=== PATIENT | male | born 1945 | race Caucasian/White ===

== ENCOUNTER 2023-10-24 22:08 | Emergency (ER) | payer MEDICARE, SELFPAY ==
[2023-10-24] VITALS (11 sets, daily range): BP systolic 135–218; BP diastolic 80–107; PULSE 50–86; RESP 6–20; TEMP 35.9–36.8; O2SAT 95–100; BMI 29.2
--- NOTE | ~2023-10-24 | XR_ITS ---
EXAMINATION: XR HAND/WRIST, LEFT CLINICAL INFORMATION: Fall COMPARISON: None TECHNIQUE: PA, lateral, and oblique views of the left hand and wrist. FINDINGS: The bones and soft tissues are normal. No fracture. Alignment is anatomic. Joint spaces are maintained. No erosions or soft tissue calcifications. XR/XR hand wrist LT IMPRESSION: Normal radiographs of the hand and wrist.
--- NOTE | ~2023-10-24 | XR_ITS ---
EXAMINATION: XR SHOULDER, LEFT CLINICAL INFORMATION: Post reduction. COMPARISON: 10/24/2023 TECHNIQUE: Two views of the left shoulder. FINDINGS: The humeral head is appropriately reduced at the glenohumeral joint. Minimal cortical irregularity at the humeral head posteriorly likely corresponds to a mild Hill-Sachs deformity. No appreciable glenoid fracture on these images. Minimal acromioclavicular osteoarthritis. No rib fractures are identified. XR/XR shoulder LT min 2V IMPRESSION: Successful glenohumeral reduction. Probable mild Hill-Sachs deformity at the humeral head. No appreciable Bankart fracture.
--- NOTE | ~2023-10-24 | XR_ITS ---
EXAMINATION: XR RIBS, LEFT CLINICAL INFORMATION: Fall. COMPARISON: None available. TECHNIQUE: PA view of the chest and 3 views of the left ribs were obtained. FINDINGS: Mild bibasilar atelectasis. No consolidation, pneumothorax, or pleural effusion. Calcific atherosclerosis is present with the thoracic aorta. Cardiac and mediastinal contours are normal. There is anterior dislocation of the left humeral head. Ribs are intact. No fractures are identified. 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 XR/XR ribs LT min 3V w CXR1V IMPRESSION: 1. No acute rib fractures. 2. Anterior dislocation of the left humeral head.
--- NOTE | ~2023-10-24 | XR_ITS ---
EXAMINATION: XR SHOULDER, LEFT CLINICAL INFORMATION: Fall COMPARISON: None available. TECHNIQUE: Two views of the left shoulder. FINDINGS: There is anterior inferior dislocation of the humeral head with respect to the glenoid. No fracture seen. Soft tissues are unremarkable. XR/XR shoulder LT min 2V IMPRESSION: Left shoulder dislocation.
--- NOTE | ~2023-10-24 | XR_ITS ---
EXAMINATION: Left elbow and left forearm x-rays CLINICAL INFORMATION: Fall COMPARISON: None. TECHNIQUE: 1 view of the left elbow. 2 views of the left forearm. FINDINGS: Left forearm: Bone alignment is normal. No fracture or dislocation. Joint spaces are normal. Soft tissues are normal. Left elbow: Lateral and AP view of the left elbow. Bone alignment is normal. No fracture or dislocation. Normal joint spaces. No joint effusion. XR/XR elbow LT 2V IMPRESSION: Unremarkable examination.
--- NOTE | ~2023-10-24 | XR_ITS ---
EXAMINATION: Left elbow and left forearm x-rays CLINICAL INFORMATION: Fall COMPARISON: None. TECHNIQUE: 1 view of the left elbow. 2 views of the left forearm. FINDINGS: Left forearm: Bone alignment is normal. No fracture or dislocation. Joint spaces are normal. Soft tissues are normal. Left elbow: Lateral and AP view of the left elbow. Bone alignment is normal. No fracture or dislocation. Normal joint spaces. No joint effusion. XR/XR forearm LT 2V IMPRESSION: Unremarkable examination.
--- NOTE | 2023-10-24 22:56 | ECG_ITS ---
Test Reason : FALL Blood Pressure : / mmHG Vent. Rate : 054 BPM Atrial Rate : 054 BPM P-R Int : 184 ms QRS Dur : 096 ms QT Int : 434 ms P-R-T Axes : 036 -01 015 degrees QTc Int : 411 ms Sinus bradycardia Cannot rule out Anterior infarct , age undetermined Abnormal ECG No previous ECGs available Referred By: Sailaja Flores Electronically Signed By:SUSANNAH ALMONTE
[2023-10-24] MEDS: Morphine Sulfate 4 MG/ML CARTRIDGE IVPUSH (23:14)
[2023-10-24] MEDS: Ketamine HCl/NS 50 MG/5 ML SYRINGE 140 MG IVPUSH (23:21)
--- NOTE | 2023-10-24 23:52 | ED_ITS ---
HPI - Fall General Chief Complaint: Fall Stated Complaint: Fall/L arm pain Time Seen by Provider: 10/24/23 22:56 Source: patient and family Mode of arrival: ambulatory Limitations: no limitations History of Present Illness HPI Narrative: Patient comes to emergency room complaining of shoulder pain. Patient states that earlier today, patient was walking outside and tripped over the cement curve. Patient attempted to catch himself with his left arm. Patient states that when he fell, patient started having immediate left shoulder pain, states the pain radiates towards the forearm, no actual wrist or elbow pain. Patient states that he did not hit his head and did not lose consciousness, patient is not on blood thinners. Related Data Allergies Allergy/AdvReac Type Severity Reaction Status Date / Time No Known Allergies Allergy Verified 10/24/23 22:15 Review of Systems Review of Systems: Constitutional : No Weight loss, No Fever, No Chills, No Night Sweats, No Fatigue, No Malaise ENT/Mouth : No Hearing loss, No Ear Pain, No Nasal Congestion, No Sinus Pain, No Hoarseness, No sore throat, No Rhinorrhea, No Swallowing Difficulty Eyes: No Eye Pain, No Swelling, No Redness, No Foreign Body, No Discharge, No Vision Changes Cardiovascular : No Chest Pain, No SOB, No Dyspnea on Exertion, No Orthopnea, No Edema, No Palpitations Respiratory : No Cough, No Sputum, No Wheezing, No Smoke Exposure, No Dyspnea Gastrointestinal : No Nausea, No Vomiting, No Diarrhea, No Constipation, No abdominal Pain, No Hematochezia, No Melena Genitourinary : no irregular bleeding, No Dysuria, No Urinary Frequency, No Hematuria, No Urinary Incontinence, No Urgency, No Flank Pain, No Urinary Flow Changes, No Hesitancy Musculoskeletal : Complaining of leave severe left shoulder pain Skin : No Skin Lesions, No rash Neuro : No Weakness, No Numbness, No Paresthesias, No Loss of Consciousness, No Dizziness, No Headache Psych : No Anxiety/Panic, No Depression, No SI/HI/AH/VH, No Social Issues, Heme/Lymph: No Bruising, No Bleeding,No Lymphadenopathy Endocrine : No Polyuria, No Polydipsia, No Temperature Intolerance PMFSH Social History Social History Alcohol intake: current Alcohol intake frequency: a few times a month Smoked in Last 30 Days: No Use of substances other than those prescribed or required for medical reasons: No Advance Directives: No Advance Directives Information Provided: No Physical Exam Vital Signs: Vital Signs: Last Vital Signs Temp 98.2 F 10/25/23 00:00 Pulse 66 10/25/23 00:00 Resp 10 L 10/25/23 00:00 BP 184/96 H 10/25/23 00:00 Pulse Ox 98 10/25/23 00:00 O2 Del Method Room Air 10/24/23 22:11 Oxygen Flow Rate 0 10/24/23 23:55 BMI result Body Mass Index 29.2 Const: Other: Appearance: Alert. Oriented X3. No acute distress. Eyes: Pupils equal, round and reactive to light. ENT: Pharynx normal. Neck: Normal inspection. Neck supple. No lymph nodes noted. No crepitus CVS: Normal heart rate and rhythm. Pulses normal. Normal S1 and S2 Respiratory: No respiratory distress. Breath sounds normal. No Wheezing. No rales Abdomen: Soft and nontender. No rigidity. No distention. Skin: Skin warm and dry. Normal skin color. Normal skin turgor. Extremities: No lower extremity edema. Right upper extremity within normal limits, left shoulder seems dislocated, obvious deformity, no ecchymosis Neuro: Oriented X 3. No motor deficit. No sensory deficit. Moving all extremities. No slurred speech. CN 2 through 12 grossly intact Psych: calm, cooperative, normal affect Medications Administered Discontinued Medications Generic Name Dose Route Start Last Admin Trade Name Freq PRN Reason Stop Dose Admin Ketamine HCl 140 mg 10/24/23 23:06 10/24/23 23:21 Ketamine Hcl/Ns 50 Mg/5 Ml Syringe IVPUSH 10/24/23 23:07 140 mg ONCE ONE Administration Morphine Sulfate 4 mg 10/24/23 23:06 10/24/23 23:14 Morphine Sulfate 4 Mg/Ml Cartridge IVPUSH 10/24/23 23:07 4 mg ONCE ONE Administration Protocol Procedures Orthopedic Joint Reduction Joint #1: Time Out Performed: Yes Side: left Joint Reduction Location: shoulder Analgesia: procedural sedation Shoulder Technique Used (if applicable): traction/counter-traction Post-reduction neuro exam: intact and no change Post-reduction vascular: intact and no change Post Reduction X-Ray Obtained: Yes Post Reduction X-Ray Results: reduced Splint Applied: No (Sling) Patient Tolerated Procedure: well and no complications Procedural Sedation Indication: fracture/dislocation reduction ASA Class: I Mallampati Class: I Time of Last PO Intake: 17:30 Preparation: quality assurance monitor body applied, pulse oximeter, capnometry used, supplemental O2 applied and IV secured Ketamine: IV Ketamine dose (mg): 140 Patient Tolerated Procedure: well Complications: hypoxia Interventions: oxygen applied and assist by BVM Additional Comments: Patient recuperated within 1 minute of assisted ventilation Medical Decision Making Medical Decision Making MDM Narrative: -my interpretation of x-rays of the shoulder: Left shoulder is anteriorly dislocated -x-rays of the elbow, forearm, wrist: No obvious fracture. No rib fracture -I discussed with the patient that his shoulder is dislocated and needs to be reduced. -patient was given 4 mg of IV morphine to control the pain -I discussed the options for anesthesia/sedation, we discussed doing a hematoma block versus IV pain medications versus conscious sedation. Patient opted to do conscious sedation. -the last time the patient ate was approximately 6 hours ago. -I consider using propofol. However, the patient's heart rate is in the low 5 0s. Therefore we will go ahead and use ketamine -my interpretation of EKG: Heart rate 54, no ST segment depression or elevation, nonspecific T-wave inversion in lead III, QTC 411 -2 milligrams/kilogram were injected IV, patient had good effect, with minimal effort, the left shoulder was easily reduced. Pulses were checked, patient has good distal radial pulses, good capillary refill -minor complication during sedation: Patient developed a laryngospasm, oxygen saturation dropped to the low 80s, after 1 minute of ambulation with Ambu/bag/mask, patient's oxygen saturation improved to 100. -then, patient recuperated uneventfully -patient awake, alert, still under the effects of ketamine, monitoring continues, patient's nurse at bedside -1227: Patient is completely awake and alert, almost back to baseline. Patient states that he feels a bit ?loopy but otherwise feels well, pain well controlled. Differential Diagnosis Differential Diagnoses: The differential diagnosis associated with the presentation includes (Humeral fracture, anterior/posterior shoulder dislocation, clavicular fracture) Critical Care Time Critical Care Time Total Critical Care Time: 75 Attestation: I have personally provided critical care time. Time includes review of lab data, radiology results, discussion with consultants, and monitoring for potential decompensation. Intervention performed as documented. Discharge Plan Discharge Clinical Impression: Anterior shoulder dislocation Patient Disposition: Home, Self-Care Instructions: Shoulder Dislocation (ED), How to Use a Sling (ED) Additional Instructions: Please follow-up with your primary care physician tomorrow. If you have any worsening or new symptoms, please return to the emergency room or call 911 Print Language: Faroese
[2023-10-25] VITALS: BP 184/96; PULSE 66; RESP 10; TEMP 36.8; O2SAT 98
--- OUTSIDE RECORDS SUMMARY | 2023-10-25 00:16 | XMS_ITS | Continuity of Care Document ---
Author Organization [facility] Address [address] [place] [address]- Care Team Providers Care Porcelain Enamel Installer Name Role Phone Hermes Joy MD Primary Care Physician Encounter [facility] Date(s): 06/13/21 - [facility] [address] [place] [address]- Attending Physician: Hermes Joy MD Allergies, Adverse Reactions, Alerts Substance Reaction Severity Status Dust Active Pollen Active Immunizations Given and Recorded Vaccine Date Status Refusal Reason SARS-CoV-2 (COVID-19) Ad26 vaccine 12/28/20 Record ed Influenza Virus Vaccine (oldterm) 03/01/20 Recorde d influenza virus vaccine, inactivated 1 05/27/17 Re corded influenza virus vaccine, inactivated 06/19/16 Give n influenza virus vaccine, inactivated 06/20/15 Give n influenza virus vaccine, inactivated 06/20/14 Give n influenza virus vaccine, inactivated 2 06/24/13 Gi katy influenza virus vaccine, inactivated 04/05/11 Give n pneumococcal 13-valent vaccine 12/19/15 Given pneumococcal 23-valent vaccine 06/24/13 Given tetanus/diphtheria/pertussis, acel(Tdap) 3 04/18/11 Given tetanus/diphtheria/pertussis, acel(Tdap) 07/06/01 Given 1Result Comment: [05/29/2017] [facility] record 2Admin Note: vis 3Admin Note: VIS:01/28/11 Medications levothyroxine 75 mcg (0.075 mg) oral tablet 1 tablet = 75 mcg, By Mouth, Daily, # 90 tablet, 1 Refills, Maintenance, 09/04/21 11:07:00 EST, Tablet, [id number], Partial fill upon patient request if the prescription is for a schedule II opioid drug., 165, cm, 06/13/21 11:19:00 EST, Hei... Start Date: 09/04/21 Status: Ordered lovastatin 20 mg oral tablet 1 tablet = 20 mg, By Mouth, Daily, # 90 tablet, 3 Refills, Soft Stop, 08/22/21 9:12:00 EST, [id number], 165, cm, 06/13/21 11:19:00 EST, Height, 78.7, kg, 12/23/19 13:07:00 EDT, DryWeight Start Date: 08/22/21 Stop Date: 08/17/22 Status: Ordered Metamucil Powder 1 packet, By Mouth, Daily, 0 Refills, Maintenance, 08/07/16 9:46:10, Powder Start Date: 08/07/16 Status: Ordered metoprolol 25 mg oral tablet, extended release 25 mg, 1, tablet, By Mouth, Daily, # 90 tablet, Refills 3, Tot. Refills 3, Maintenance, 08/22/21 9:11:00 EST, Route to Pharmacy Electronically, [id number], 165, cm, 06/13/21 11:19:00 EST, Height, 78.7, kg, 12/23/19 13:07:00 EDT, Dry Weight Start Date: 08/22/21 Status: Ordered omeprazole 20 mg oral enteric coated capsule 1 capsule = 20 mg, By Mouth, Daily, # 90 capsule, 3 Refills, Maintenance, 08/22/21 9:11:00 EST, EC Capsule, [id number], 165, cm, 06/13/21 11:19:00 EST, Height, 78.7, kg, 12/23/19 13:07:00 EDT, Dry Weight Start Date: 08/22/21 Status: Ordered One-A-Day Men Pro Edge 1 tablet, By Mouth, Daily, 0 Refills, Maintenance, 08/07/16 9:45:51 Start Date: 08/07/16 Status: Ordered terazosin 5 mg oral capsule 5 mg, 1, capsule, By Mouth, Daily at bedtime, # 90 capsule, Refills 1, Tot. Refills 1, Soft Stop, 08/20/21 8:44:00 EST, Route to Pharmacy Electronically, [id number], 165, cm, 06/13/21 11:19:00 EST, Height, 78.7, kg, 12/23/19 13:07:00 ED... Start Date: 08/20/21 Stop Date: 02/16/22 Status: Ordered Vitamin B12 0 Refills, Maintenance, 08/07/16 9:46:00 Start Date: 08/07/16 Status: Ordered Vitamin C 250 mg oral tablet 1 tablet = 250 mg, By Mouth, Daily, 0 Refills, Maintenance Start Date: 08/30/09 Status: Ordered vitamin E 400 iu oral capsule 1 capsule, By Mouth, Daily, # 30 capsule, 0 Refills, Maintenance, Capsule Start Date: 03/07/11 Status: Ordered Problem List Condition Effective Dates Status Health Status Inform ant Advanced directive placed in chart this admission(Confirmed) Active Suarez's esophagus(Confirmed) Active CKD (chronic kidney disease)(Confirmed) Active Conduction disorder of the heart(Confirmed) Active DVT - Deep vein thrombosis o f lower limb(Confirmed) Active Enlarged prostate(Confirmed) Active GERD (gastroesophageal reflu x disease)(Confirmed) Active HTN - Hypertension(Confirmed) Active HLD (hyperlipidemia)(Confirmed) Active Hypothyroidism(Confirmed) Active Elbow pain, right(Confirmed) Active Plantar fascial fibromatosis(Confirmed) Active Varicosities of leg, Bilateral(Confirmed) Active Vitiligo(Confirmed) Active Social History Social History Type Response Smoking Status Former smoker, quit more than 30 days ago; Tobacco user in household: No; Other: quit in the 80s; entered on: 12/21/18 Sex
--- OUTSIDE RECORDS SUMMARY | 2023-10-25 00:16 | XMS_ITS | Continuity of Care Document ---
Author Organization [facility] Address [address] [place] [address]- Care Team Providers Care Geriatric Physician Name Role Phone Hermes Joy MD Primary Care Physician Encounter [facility] Date(s): 06/04/20 - 07/04/20 [facility] [address] [place] [address]- Allergies, Adverse Reactions, Alerts Substance Reaction Severity Status Dust Active Pollen Active Immunizations Given and Recorded Vaccine Date Status Refusal Reason Influenza Virus Vaccine (oldterm) 03/01/20 Recorde d [...] Note: vis 3Admin Note: VIS:01/28/11 Medications levothyroxine 0.1 mg oral tablet 1 tablet = 100 mcg, By Mouth, Daily, # 90 tablet, 1 Refills, Maintenance, 04/16/20 9:24:00 EDT, Tablet, [id number], Rx resent from 12/21/18., 165, cm, 12/23/19 13:07:00 EDT, Height, 78.7, kg, 12/23/19 13:07:00 EDT, Dry Weight Start Date: 04/16/20 Status: Ordered lovastatin 20 mg oral tablet 1 tablet = 20 mg, By Mouth, Daily, # 90 tablet, 3 Refills, Soft Stop, 06/06/19 12:54:55 EST Start Date: 06/06/19 Stop Date: 05/31/20 Status: Ordered Metamucil Powder 1 packet, By Mouth, Daily, 0 Refills, Maintenance, 08/07/16 9:46:10, Powder Start Date: 08/07/16 Status: Ordered metoprolol 25 mg oral tablet, extended release 25 mg, 1, tablet, By Mouth, Daily, # 90 tablet, Refills 1, Tot. Refills 1, Maintenance, 06/04/20 8:17:00 EST, Route to Pharmacy Electronically, [id number], Rx resent from 06/23/19., 165, cm, 12/23/19 13:07:00 EDT, Height, 78.7, kg, 12/04... Start Date: 06/04/20 Status: Ordered omeprazole 20 mg oral enteric coated capsule 1 capsule = 20 mg, By Mouth, Daily, # 90 capsule, 0 Refills, Maintenance, 04/26/20 9:18:00 EDT, EC Capsule, [id number], 165, cm, 12/23/19 13:07:00 EDT, Height, 78.7, kg, 12/23/19 13:07:00 EDT, Dry Weight Start Date: 04/26/20 Status: Ordered One-A-Day Men Pro Edge 1 tablet, By Mouth, Daily, 0 Refills, Maintenance, 08/07/16 9:45:51 Start Date: 08/07/16 Status: Ordered terazosin 5 mg oral capsule 5 mg, 1, capsule, By Mouth, Daily at bedtime, # 90 capsule, Refills 2, Tot. Refills 2, Soft Stop, 11/23/19 12:02:00 EDT, Route to Pharmacy Electronically, [id number], 165, cm, 06/23/19 8:05:00 EST, Height Start Date: 11/23/19 Stop Date: 08/19/20 Status: Ordered Vitamin B12 0 Refills, Maintenance, [...]
--- OUTSIDE RECORDS SUMMARY | 2023-10-25 00:17 | XMS_ITS | Continuity of Care Document ---
Author Organization [facility] Address [address] [place] [address]- Care Team Providers Care Insurance Broker Name Role Phone Hermes Joy MD Primary Care Physician [facility] Date(s): 11/13/20 - [facility]13/[facility] [address] [place] [address]- Attending Physician: Jennifer Castañeda Admitting Physician: Jennifer Castañeda Referring Physician: AdmtrJennifer Allergies, Adverse Reactions, Alerts Substance Reaction Severity [...] Daily, # 90 tablet, 1 Refills, Maintenance, 10/10/20 8:52:00 EDT, Tablet, [id number], Rx resent from 12/21/18., 165, cm, 12/23/19 13:07:00 EDT, Height, 78.7, kg, 12/23/19 13:07:00 EDT, Dry Weight Start Date: 10/10/20 Status: Ordered lovastatin 20 mg oral tablet 1 tablet = 20 mg, By Mouth, Daily, # 90 tablet, 1 Refills, Soft Stop, 07/18/20 11:21:00 EST, [id number], 165, cm, 12/23/19 13:07:00 EDT, Height, 78.7, kg, 12/23/19 13:07:00 EDT, Dry Weight Start Date: 07/18/20 Stop Date: 01/14/21 Status: Ordered Metamucil Powder 1 packet, By Mouth, Daily, 0 Refills, Maintenance, 08/07/16 9:46:10, Powder Start Date: 08/07/16 Status: Ordered metoprolol 25 mg oral tablet, extended release 25 mg, 1, tablet, By Mouth, Daily, # 90 tablet, Refills 0, Tot. Refills 0, Maintenance, 12/04/20 8:37:00 EDT, Route to Pharmacy Electronically, [facility], Rx resent from 06/23/19., 165, cm, 11/20/20 9:45:00 EDT, Height, 78.7, kg, 12/22... Start Date: 12/04/20 Status: Ordered omeprazole 20 mg oral enteric coated capsule 1 capsule = 20 mg, By Mouth, Daily, # 90 capsule, 1 Refills, Maintenance, 07/25/20 10:06:00 EST, ECCapsule, [facility], 165, cm, 12/23/19 13:07:00 EDT, Height, 78.7, kg, 12/23/19 13:07:00 EDT, Dry Weight Start Date: 07/25/20 Status: Ordered One-A-Day Men Pro Edge 1 tablet, By Mouth, Daily, 0 Refills, Maintenance, 08/07/16 9:45:51 Start Date: 08/07/16 Status: Ordered terazosin 5 mg oral capsule 5 mg, 1, capsule, By Mouth, Daily at bedtime, # 90 capsule, Refills 1, Tot. Refills 1, Soft Stop, 08/19/20 12:02:00 EST, Route to Pharmacy Electronically, [id number], 165, cm, 12/23/19 13:07:00 EDT, Height, 78.7, kg, 12/23/19 13:07:00 E... Start Date: 08/19/20 Stop Date: 02/15/21 Status: Ordered Vitamin B12 0 Refills, Maintenance, [...] Former smoker, quit more than 30 days ago entered on: 11/13/20 Sex
--- OUTSIDE RECORDS SUMMARY | 2023-10-25 00:17 | XMS_ITS | Continuity of Care Document ---
Author Organization [facility] Address [address] [place] [address]- Care Team Providers Care Yeast Fermentation Attendant Name Role Phone Hermes Joy MD Primary Care Physician Encounter [facility] Date(s): 01/24/21 - [facility] [address] [place] [address]- Allergies, Adverse Reactions, Alerts Substance Reaction Severity [...] 1 Refills, Maintenance, 10/10/20 8:52:00 EDT, Tablet, [id number], Rx resent from 12/21/18., 165, cm, 12/23/19 13:07:00 EDT, Height, 78.7, kg, 12/23/19 13:07:00 EDT, Dry Weight Start Date: 10/10/20 Status: Ordered lovastatin 20 mg oral tablet 1 tablet = 20 mg, By Mouth, Daily, # 90 tablet, 0 Refills, Soft Stop, 01/15/21 8:35:00 EDT, [facility], 165, cm, 11/20/20 9:45:00 EDT, Height, 78.7, kg, 12/23/19 13:07:00 EDT, Dry Weight Start Date: 01/15/21 Stop Date: 04/15/21 Status: Ordered Metamucil Powder 1 packet, By Mouth, Daily, 0 Refills, Maintenance, 08/07/16 9:46:10, Powder Start Date: 08/07/16 Status: Ordered metoprolol 25 mg oral tablet, extended release 25 mg, 1, tablet, By Mouth, Daily, # 90 tablet, Refills 0, Tot. Refills 0, Maintenance, 12/04/20 8:37:00 EDT, Route to Pharmacy Electronically, [id number], Rx resent from 06/23/19., 165, cm, 11/20/20 9:45:00 EDT, Height, 78.7, kg, 12/22... Start Date: 12/04/20 Status: Ordered omeprazole 20 mg oral enteric coated capsule 1 capsule = 20 mg, By Mouth, Daily, # 90 capsule, 1 Refills, Maintenance, 01/25/21 8:22:00 EDT, EC Capsule, [facility], 165, cm, 11/20/20 9:45:00 EDT, Height, 78.7, kg, 12/23/19 13:07:00 EDT, Dry Weight Start Date: 01/25/21 Status: Ordered One-A-Day Men Pro Edge 1 tablet, By Mouth, Daily, 0 Refills, Maintenance, 08/07/16 9:45:51 Start Date: 08/07/16 Status: Ordered terazosin 5 mg oral capsule 5 mg, 1, capsule, By Mouth, Daily at bedtime, # 90 capsule, Refills 0, Tot. Refills 0, Soft Stop, 02/21/21 8:44:00 EDT, Route to Pharmacy Electronically, [id number], 165, cm, 11/20/20 9:45:00 EDT, Height, 78.7, kg, 12/23/19 13:07:00 EDT... Start Date: 02/21/21 Stop Date: 05/22/21 Status: Ordered Vitamin B12 0 Refills, Maintenance, [...]
--- OUTSIDE RECORDS SUMMARY | 2023-10-25 00:17 | XMS_ITS | Continuity of Care Document ---
Author Organization [facility] Address [address] [place] [address]- Care Team Providers Care Health Information Assistant Name Role Phone Hermes Joy MD Primary Care Physician Encounter [facility] Date(s): 02/26/23 - [facility] [address] [place] [address]- Encounter Diagnosis HTN - Hypertension(Discharge Diagnosis) - 02/26/23 Hypothyroidism(Discharge Diagnosis) - 02/26/23 HLD (hyperlipidemia)(Discharge Diagnosis) - 02/26/23 Chronic kidney disease, stage 3a(Discharge Diagnosis) - 02/26/23 Contusion of great toe, right(Discharge Diagnosis) - 02/26/23 Attending Physician: Hermes Joy MD Allergies, Adverse Reactions, Alerts Substance Reaction Severity Status Dust Active Pollen Active Immunizations Given and Recorded Vaccine Date Status Refusal Reason influenza virus vaccine, inactivated 04/29/22 Tone rded influenza virus vaccine, inactivated 03/15/19 Tone rded influenza virus vaccine, inactivated 03/08/18 Tone rded influenza virus vaccine, inactivated 1 05/27/17 Re corded influenza virus vaccine, inactivated 06/19/16 Give n influenza virus vaccine, inactivated 06/20/15 Give n influenza virus vaccine, inactivated 06/20/14 Give n influenza virus vaccine, inactivated 2 06/24/13 Gi katy influenza virus vaccine, inactivated 04/05/11 Give n SARS-CoV-2 (COVID-19) Ad26 vaccine 12/28/20 Record ed Influenza Virus Vaccine (oldterm) 03/01/20 Recorde d pneumococcal 13-valent vaccine 12/19/15 Given pneumococcal 23-valent vaccine 06/24/13 Given tetanus/diphtheria/pertussis, acel(Tdap) 3 04/18/11 Given tetanus/diphtheria/pertussis, acel(Tdap) 07/06/01 Given 1Result Comment: [05/29/2017] [facility] 2Admin Note: vis 3Admin Note: VIS:01/28/11 Medications levothyroxine 0.088 mg oral tablet 1 tablet = 88 mcg, By Mouth, Daily, # 90 tablet, 1 Refills, Maintenance, 02/26/23 7:52:00 EDT, Tablet, [id number], Partial fill upon patient request if the prescription is for a schedule II opioid drug., 165, cm, 02/26/23 7:30:00 EDT, H... Start Date: 02/26/23 Status: Ordered lovastatin 20 mg oral tablet 1 tablet = 20 mg, By Mouth, Daily, # 90 tablet, 1 Refills, Soft Stop, 02/26/23 7:52:00 EDT, [id number], 165, cm, 02/26/23 7:30:00 EDT, Height, 81.3, kg, 01/25/22 14:12:00 EDT, Dry Weight Start Date: 02/26/23 Stop Date: 08/25/23 Status: Ordered Metamucil Powder 1 packet, By Mouth, Daily, 0 Refills, Maintenance, 08/07/16 9:46:10, Powder Start Date: 08/07/16 Status: Ordered metoprolol 25 mg oral tablet, extended release 25 mg, 1, tablet, By Mouth, Daily, # 90 tablet, Refills 1, Tot. Refills 1, Maintenance, 02/23/23 9:30:00 EDT, Route to Pharmacy Electronically, [id number], 165, cm, 08/26/22 7:57:00 EST, Height, 81.3, kg, 01/25/22 14:12:00 EDT, Dry Weight Start Date: 02/23/23 Status: Ordered omeprazole 20 mg oral enteric coated capsule 1 capsule = 20 mg, By Mouth, Daily, # 90 capsule, 1 Refills, Maintenance, 02/26/23 7:52:00 EDT, EC Capsule, [facility], 165, cm, 02/26/23 7:30:00 EDT, Height, 81.3, kg, 01/25/22 14:12:00 EDT, Dry Weight Start Date: 02/26/23 Status: Ordered One-A-Day Men Pro Edge 1 tablet, By Mouth, Daily, 0 Refills, Maintenance, 08/07/16 9:45:51 Start Date: 08/07/16 Status: Ordered terazosin 5 mg oral capsule 5 mg, 1, capsule, By Mouth, Daily at bedtime, # 90 capsule, Refills 1, Tot. Refills 1, Soft Stop, 02/16/23 11:15:00 EDT, Route to Pharmacy Electronically, [id number], 165, cm, 08/26/22 7:57:00 EST, Height, 81.3, kg, 01/25/22 14:12:00 ED... Start Date: 02/16/23 Stop Date: 08/15/23 Status: Ordered Vitamin B12 0 Refills, Maintenance, 08/07/16 9:46:00 Start Date: 08/07/16 Status: Ordered Vitamin C 250 mg oral tablet 1 tablet = 250 mg, By Mouth, Daily, 0 Refills, Maintenance Start Date: 08/30/09 Status: Ordered vitamin E 400 iu oral capsule 1 capsule, By Mouth, Daily, # 30 capsule, 0 Refills, Maintenance, Capsule Start Date: 03/07/11 Status: Ordered Problem List Condition Confirmation Course Effective Dates Status H ealth Status Informant Advanced directive placed in chart this admission Confirmed Active Suarez's esophagus Confirmed Active Chronic kidney disease, stage 3a 1 Confirmed Active 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 Enlarged prostate Confirmed Active GERD (gastroesophageal reflux disease) Confirmed Active History of DVT (deep vein thrombosis) Confirmed Active HTN - Hypertension Confirmed Active HLD (hyperlipidemia) Confirmed Active Hypothyroidism Confirmed Active Elbow pain, right Confirmed Active Plantar fascial fibromatosis Confirmed Active Varicosities of leg, Bilateral Confirmed Active Vitiligo Confirmed Active 1Per chart review; GFR criteria Diagnosis Diagnosis Type Effective Dates Health Status Clinical Service Informant HTN - Hypertension Discharge Diagnosis 02/26/23 Hypothyroidism Discharge Diagnosis 02/26/23 HLD (hyperlipidemia) Discharge Diagnosis 02/26/23 Chronic kidney disease, stage 3a Discharge Diagnosis 02/26/23 Contusion of great toe, right Discharge Diagnosis 02/26/23 Vital Signs Most recent to oldest [Reference Range]: 1 Height 165 cm (02/26/23 7:30 AM) Weight 77.6 kg (02/26/23 7:30 AM) Oxygen Saturation [94-100 %] 98 % (02/26/23 7:30 AM) Pulse Rate [55-90 bpm] 60 bpm (02/26/23 7:30 AM) Body Mass Index [18.5-24.99 kg/m2] 28.5 kg/m2 *H* (02/26/23 7:30 AM) Blood Pressure [90-138/55-84 mm Hg] 132/ 80mm Hg (02/26/23 7:30 AM) Respiratory Rate [16-30 br/min] 16 br/mi n (02/26/23 7:30 AM) Temperature [96.8-100.4 DegF] 98.0 DegF (02/26/23 7:30 AM) Mode of Delivery (Oxygen) Room air (02/26/23 7:30 AM) Blood pressure sites Arm, left (02/26/23 7:30 AM) Temperature Route Temporal (02/26/23 7:30 AM) Weight Obtained Via Standing scale (02/26/23 7:30 AM) Social History Social History Type Response Smoking Status Former smoker, quit more than 30 days ago; Tobacco user in household: No; Other: quit in the 80s; entered on: 12/21/18 Sex Note * Socorro Sifuentes: PERFORM, SIGN, VERIFY Event Display: Patient Education/Instruction Authored Date: [id number] [facility] *BMP Quab Adlt Med Bltn Clinical Summary Name VERONICA MCKNIGHT Age 77 Years 1945 PCP Hermes Joy MD PCP [facility]# [id number] Visit Date 02/26/2023 07:14:00 Additional Instructions: Scheduled Appointments?? Future Appointments ?No Future Appointments Scheduled Follow-Up Instructions ?? Diagnosis Hypothyroidism, unspecified; Essential (primary) hypertension; Hyperlipidemia, unspecified; Chronickidney disease, stage 3a Medications: Please continue your medications until treatment is completed or stopped by your provider. Discuss any questions related to medications with your provider. Medications to Continue with No Changes [id number], [address], [place] [id number], [phone] Levothyroxine (levothyroxine 0.088 mg oral tablet) 1 tab(s) Oral Daily. Refills: 1. Next Dose: Lovastatin (lovastatin 20 mg oral tablet) 1 tab(s) Oral Daily for 90 Days. Refills: 1. Next Dose: Omeprazole (omeprazole 20 mg oral enteric coated capsule) 1 capsule Oral Daily. Refills: 1. Next Dose: These medications were not printed or sent to your pharmacy Ascorbic Acid (Vitamin C 250 mg oral tablet) 1 tab(s) Oral Daily. Next Dose: Cephalexin (cephalexin monohydrate 500 mg oral capsule) 1 capsule Oral 4 times a day for 7 Days. Refills: 0. Next Dose: Cyanocobalamin (Vitamin B12) Next Dose: Metoprolol (metoprolol 25 mg oral tablet, extended release) 1 tab(s) Oral Daily. Refills: 1. Next Dose: Multivitamin With Minerals (One-A-Day Men Pro Edge) 1 tab(s) Oral Daily. Next Dose: Psyllium (Metamucil Powder) 1 pack/packet Oral Daily. Next Dose: Terazosin (terazosin 5 mg oral capsule) 1 capsule Oral Daily at Bedtime for 90 Days. Refills: 1. Next Dose: Vitamin E (vitamin E 400 iu oral capsule) 1 capsule Oral Daily. Next Dose: Allergy Info:?? Pollen; Dust Medications Given This Visit Future Orders ?Basic Metabolic Panel? Order Date:02/26/23?- Complete on or after?02/26/23 ?Thyroid Panel? Order Date:02/26/23?- Complete on or after?02/26/23 ?Lipid Panel? Order Date:08/29/23?- Complete by?09/26/23 ?Comprehensive Metabolic Panel? Order Date:08/29/23?- Complete by?09/26/23 ?Hemoglobin A1C (Monitoring)? Order Date:08/29/23?- Complete by?09/26/23 ?Thyroid Panel? Order Date:08/29/23?- Complete by?09/26/23 ?PSA Screen? Order Date:08/29/23?- Complete by?09/26/23 ?CBC w/ Differential? Order Date:08/29/23?- Complete by?09/26/23 Vital Signs Height 165 cm Weight 77.6 kg BMI 28.5 kg/m2 Blood Pressure 132 mm Hg/80 mm Hg Temperature 98.0 DegF Pulse Rate 60 bpm Respiratory Rate 16 br/min 02 Sat Mode of Delivery 98 %/Room air You can now view a summary of your hospital visit from the comfort of your home through a free online portal called [employer]trips. Edtrips is a website that allows you to securely view your medical information including discharge summary, medications and follow-up visits. ??You can alsosend a secure electronic message to your doctor???s office to request appointments, renew medications or just ask a question. You can enroll at [email or web address] or register during your next office visit. Disclaimer:?? The information provided is of a general nature and is intended to be used in conjunction with the recommendations and advice of your health care practitioner. ??Every effort has been made to ensure that the information provided is accurate and complete at the time it is provided to you however, as your needs change, or, as new ??information becomes available, different or additional instructions may be required. If you have questions, please consult with your primary care provider or pharmacist, as appropriate. ??This information is not intended to serve as substitution for assessment and evaluation by a qualified health care provider. If you do not have a primary care provider, you may find a [facility] provider by calling [facility] [employer] at [phone]. For information about the plan of care including goals and instructions for your diagnosis, please see the patient education orders section of this document. Patient Education Materials?? The content of this educational material or handout may have been modified, supplemented, or adapted from its original content and format to support your individualized medical care. Controlling Your Cholesterol Cholesterol is a waxy substance. It travels in your blood through the blood vessels. When you have high cholesterol, it builds up in the tyler of the blood vessels. This makes the vessels narrower. Blood flow decreases. You are then at greater risk for having a heart attack or a stroke. Good and bad cholesterol Lipids are fats. Blood is mostly water. Fat and water don't mix. So our bodies need lipoproteins (lipids inside a protein shell) to carry the lipids. The protein shell carries its lipids through the bloodstream. There are two main kinds of lipoproteins: ??? LDL (low-density lipoprotein) is known as bad cholesterol. It mainly carries cholesterol. It delivers this cholesterol to body cells. Excess LDL cholesterol will build up in artery tyler. This increases your risk??for heart disease and stroke. ??? HDL (high-density lipoprotein) is known as good cholesterol. This protein shell collects excess cholesterol that LDLs have left behind on blood vessel tyler. That's why high levels of HDL cholesterol can decrease your risk of heart disease and stroke. Controlling cholesterol levels Total cholesterol includes LDL and HDL cholesterol, as well as other fats in the bloodstream. If your total cholesterol is high, follow the steps below to help lower your total cholesterol level: ??? Eat less unhealthy fat: ??? Cut back on saturated fats and trans (also called hydrogenated) fats by selecting lean cuts of meat, low-fat dairy, and using oils instead of solid fats. Limit baked goods, processed meats, and fried foods. A diet that???s high in these fats increases your bad cholesterol. It's not enough to just cut back on foods containing cholesterol. ??? Eat about 2 servings of fish per week. Most fish contain omega-3 fatty acids. These help lower blood cholesterol. ??? Eat more whole grains and soluble fiber (such as oat bran). These lower overall cholesterol. ??? Be active: ??? Choose an activity you enjoy. Walking, swimming, and riding a bike are some good ways to be active. ??? Start at a level where you feel comfortable. Increase your time and pace a little each week. ??? Work up to 40 minutes of moderate to high intensity physical activity at least 3 to 4 days per week. ??? Remember, some activity is better than none. ??? If you haven't been exercising regularly, start slowly. Check with your doctor to make sure theexercise plan is right for you. ??? Quit smoking. Quitting smoking can improve your lipid levels. It also lowers your risk for heart disease and stroke. ??? Weight management. If you are overweight or obese, your health care provider will work with youto lose weight and lower your BMI (body mass index) to a normal or near-normal level. Making diet changes and increasing physical activity can help. ??? Take medication as directed. Many people need medication to get their LDL levels to a safe level. Medication to lower cholesterol levels is effective and safe. (But taking medication is not a substitute for exercise or watching your diet!) Your doctor can tell you whether you might benefit froma cholesterol- lowering medication. ?? 1131-6768 [employer]. [address] [place] [address], [place] [address]. All rights reserved. This information is not intended as a substitute for professional medical care. Always follow your healthcare professional's instructions. Controlling High Blood Pressure High blood pressure (hypertension) is often called the silent killer. This is because many people who have it don???t know it. High blood pressure is defined as 140/90 mm Hg or higher.??Know your blood pressure and remember to check it regularly. Doing so can save your life. Here are some things you can do to help control your blood pressure. Choose heart-healthy foods ??? Select low-salt, low-fat foods. Limit sodium intake to 2,400 mg per day or the amount suggestedby your healthcare provider. ??? Limit canned, dried, cured, packaged, and fast foods. These can contain a lot of salt. ??? Eat 8 to 10 servings of fruits and vegetables every day. ??? Choose lean meats, fish, or chicken. ??? Eat whole-grain pasta, brown rice, and beans. ??? Eat 2 to 3 servings of low-fat or fat-free dairy products. ??? Ask your doctor about the DASH eating plan. This plan helps reduce blood pressure. ??? When you go to a restaurant, ask that your meal be prepared with no added salt. Maintain a healthy weight ??? Ask your healthcare provider how many calories to eat a day. Then stick to that number. ??? Ask your healthcare provider what weight range is healthiest for you. If you are overweight, a weight loss of only 3% to 5% of your body weight??can help lower blood pressure. Generally, a good weight loss goal is to lose 10% of your body weight in a year. ??? Limit snacks and sweets. ??? Get regular exercise. Get up and get active ??? Choose activities you enjoy. Find ones you can do with friends or family. This includes bicycling, dancing, walking, and jogging. ??? Park farther away from building entrances. ??? Use stairs instead of the elevator. ??? When you can, walk or bike instead of driving. ??? [place] leaves, garden, or do household repairs. ??? Be active at a moderate to vigorous level of physical activity for at least 40 minutes for a minimum of 3 to 4 days a week. Manage stress ??? Make time to relax and enjoy life. Find time to laugh. ??? Communicate your concerns with your loved ones and your healthcare provider. ??? Visit with family and friends, and keep up with hobbies. Limit alcohol and quit smoking ??? Men should have no more than 2 drinks per day. ??? Women should have no more than 1 drink per day. ??? Talk with your healthcare provider about quitting smoking. Smoking significantly increases yourrisk for heart disease and stroke. Ask your healthcare provider about community smoking cessation programs and other options. Medicines If lifestyle changes aren???t enough, your healthcare provider may prescribe high blood pressure medicine. Take all medicines as prescribed. If you have any questions about your medicines, ask your healthcare provider before stopping or changing them. ?? 7141-9906 [employer]. [address] [place] [address], [place] [address]. All rights reserved. This information is not intended as a substitute for professional medical care. Always follow your healthcare professional's instructions. Advance Medical Directive An advance medical directive is a form that lets you plan ahead for the care you???d want if you could no longer express your wishes. This statement outlines the medical treatment you???d want or names the person you???d wish to make healthcare decisions for you. Be aware that laws vary from state to state, and it may be worthwhile to talk with an turn supervisor. Writing down your wishes ??? An advance directive is important whether you???re young or old. Injury or illness can strike at any age. ??? Decide what is important to you and the kind of treatment you???d want, or not want to have. ??? Some states allow only one kind of advance directive. Some let you do both a Durable Power of [place] [employer] for Health Care and a Living Will. Some states put both kinds on the same form. A Durable Power of [place] [employer] for Health Care ??? This form lets you name someone else to be your agent. ??? This person can decide on treatment for you only when you can???t speak for yourself. ??? You do not need to be at the end of your life. He or she could speak for you if you were in a coma but were likely to recover. A Living Will ??? This form lets you list the care you want at the end of your life. ??? A living will applies only if you won???t live without medical treatment. It would apply if youhad advanced cancer, a massive stroke, or other serious illness from which you will not recover. ??? It takes effect only when you can no longer express your wishes yourself. ?? [id number] [employer]. [address] [place] [address]. All rights reserved. This information is not intended as a substitute for professional medical care. Always follow your healthcare professional's instructions. Patient Care team information Care Team Personnel Name: Zoraida Morris RN Position: [facility] DIESEL POWER SHOVEL OPERATOR Member Role: Primary Care Nurse Name: Hermes Joy MD Position: [facility] Physician - Primary Care Member Role: PCP Address: Address: [address] [place] [address] Name: Kristine House RN Position: [facility] Outreach Member Role: Primary Care Nurse Care Team Related Persons Name: MAGALI SORENSEN Address: [address] [address] Name: NILAY CLARK
--- OUTSIDE RECORDS SUMMARY | 2023-10-25 00:17 | XMS_ITS | Continuity of Care Document ---
Author Organization [facility] Address [address] [place] [address]- Care Team Providers Care Legislative Aide Name Role Phone Hermes Joy MD Primary Care Physician Encounter [facility] Date(s): 02/23/23 - 03/02/23 [facility] [address] [place] [address]- Attending Physician: Julita Padilla NP Allergies, Adverse Reactions, Alerts Substance Reaction Severity [...] 02/23/23 9:30:00 EDT, Route to Pharmacy Electronically, [facility], 165, cm, 08/26/22 7:57:00 EST, [...] Confirmed Active 1Per chart review; GFR criteria Vital Signs Most recent to oldest [Reference Range]: 1 Height 165 cm (02/23/23 2:57 PM) Weight 78.7 kg (02/23/23 2:57 PM) Oxygen Saturation [94-100 %] 98 % (02/23/23 2:57 PM) Pulse Rate [55-90 bpm] 65 bpm (02/23/23 2:57 PM) Body Mass Index [18.5-24.99 kg/m2] 28.91 kg/m2 *H* (02/23/23 2:57 PM) Blood Pressure [90-138/55-84 mm Hg] 128/ 82mm Hg (02/23/23 2:57 PM) Temperature [96.8-100.4 DegF] 97.1 DegF (02/23/23 2:57 PM) Mode of Delivery (Oxygen) Room air (02/23/23 2:57 PM) Blood pressure sites Arm, right (02/23/23 2:57 PM) Temperature Route Temporal (02/23/23 2:57 PM) Weight Obtained Via Standing scale (02/23/23 2:57 PM) Social History Social History Type Response Smoking Status Former smoker, quit more than 30 days ago; Tobacco user in household: No; Other: quit in the 80s; entered on: 12/21/18 Sex Note * Socorro Sifuentes: PERFORM, SIGN, VERIFY Event Display: Patient Education/Instruction Authored Date: [id number] [facility] *BMP Quab Adlt Med Bltn Clinical Summary Name VERONICA MCKNIGHT Age 77 Years 1945 PCP Hermes Joy MD PCP Visit Date 02/23/2023 14:53:00 Additional Instructions: Scheduled Appointments?? Future Appointments ?*BMP??Quab??Adlt??Med??Bltn ?[address]??[place],??[place],??[address] ?Phone:??--?Fax:??-- ?Appt. Date:??02/26/2023?7:20 AM ?Scheduled Provider:??Hermes Joy MD Follow-Up Instructions ?? Diagnosis Medications: Please continue your medications until treatment is completed or stopped by your provider. Discuss any questions related to medications with your provider. New Medications [facility], [address], [place] [id number], [phone] Cephalexin (cephalexin monohydrate 500 mg oral capsule) 1 capsule Oral 4 times a day for 7 Days. Refills: 0. Next Dose: Medications to Continue with No Changes These medications were not printed or sent to your pharmacy Ascorbic Acid (Vitamin C 250 mg oral tablet) 1 tab(s) Oral Daily. Next Dose: Cyanocobalamin (Vitamin B12) Next Dose: Levothyroxine (levothyroxine 0.088 mg oral tablet) 1 tab(s) Oral Daily. Refills: 1. Next Dose: Lovastatin (lovastatin 20 mg oral tablet) 1 tab(s) Oral Daily for 90 Days. Refills: 1. Next Dose: Metoprolol (metoprolol 25 mg oral tablet, extended release) 1 tab(s) Oral Daily. Refills: 1. Next Dose: Multivitamin With Minerals (One-A-Day Men Pro Edge) 1 tab(s) Oral Daily. Next Dose: Omeprazole (omeprazole 20 mg oral enteric coated capsule) 1 capsule Oral Daily. Refills: 0. Next Dose: Psyllium (Metamucil Powder) 1 pack/packet Oral Daily. Next Dose: Terazosin (terazosin 5 mg oral capsule) 1 capsule Oral Daily at Bedtime for 90 Days. Refills: 1. Next Dose: Vitamin E (vitamin E 400 iu oral capsule) 1 capsule Oral Daily. Next Dose: Allergy Info:?? Pollen; Dust Medications Given This Visit Future Orders ?No future orders Vital Signs Height 165 cm Weight 78.7 kg BMI 28.91 kg/m2 Blood Pressure 128 mm Hg/82 mm Hg Temperature 97.1 DegF Pulse Rate 65 bpm Respiratory Rate 02 Sat Mode of Delivery 98 %/Room air You can now view a summary of your hospital visit from the comfort of your home through a free online portal called [email or web address]. [email or web address] is a website that allows you to securely view your medical information including discharge summary, medications and follow-up visits. ??You can alsosend a secure electronic message to your doctor???s office to request appointments, renew medications or just ask a question. You can enroll at [email or web address] or register during your next office visit. [...] primary care provider, you may find a [facility] provider by calling [facility] at [phone]. For information about the plan of care including goals and instructions for your diagnosis, please see the patient education orders section of this document. Patient Education Materials?? The content of this educational material or handout may have been modified, supplemented, or adapted from its original content and format to support your individualized medical care. Patient Care team information Care Team Personnel Name: Zoraida Morris RN Position: [facility] BRAND MARKETING COORDINATOR Member Role: Primary Care Nurse Name: Hermes Joy MD Position: [facility] Physician - Primary Care Member Role: PCP Address: Address: [address] [place], [place] [address], [place] [address]- Name: Kristine House RN Position: [facility] Outreach Member Role: Primary Care Nurse Care Team Related Persons Name: MAGALI SORENSEN Address: home [address] [place] [id number] Name: NILAY CLARK
--- OUTSIDE RECORDS SUMMARY | 2023-10-25 00:17 | XMS_ITS | Continuity of Care Document ---
Author Organization [facility] Address [address] [place] [address]- Care Team Providers Care Family Dentist Name Role Phone Hermes Joy MD Primary Care Physician Encounter [facility] Date(s): 08/18/23 - [facility] [address] [place] [address]- Allergies, Adverse Reactions, Alerts Substance Reaction Severity [...] Daily, # 90 tablet, 1 Refills, Maintenance, 09/14/23 8:28:00 EDT, Tablet, [facility], Partial fill upon patient request if the prescription is for a schedule II opioid drug., 165, cm, 04/27/23 9:13:00 EDT, H... Start Date: 09/14/23 Status: Ordered lovastatin 20 mg oral tablet 1 tablet = 20 mg, By Mouth, Daily, # 90 tablet, 1 Refills, Soft Stop, 02/26/23 7:52:00 EDT, [facility], 165, cm, 02/26/23 7:30:00 EDT, [...] tablet, Refills 1, Tot. Refills 1, Maintenance, 08/26/23 8:27:00 EST, Route to Pharmacy Electronically, [facility], 165, cm, 04/27/23 9:13:00 EDT, Height, 81.3, kg, 01/25/22 14:12:00 EDT, Dry Weight Start Date: 08/26/23 Status: Ordered omeprazole 20 mg oral enteric coated capsule 1 capsule = 20 mg, By Mouth, Daily, # 90 capsule, 1 Refills, Maintenance, 02/26/23 7:52:00 EDT, EC Capsule, [facility], 165, cm, 02/26/23 7:30:00 EDT, Height, 81.3, kg, 01/25/22 14:12:00 EDT, Dry Weight Start Date: 02/26/23 Status: Ordered One-A-Day Men Pro Edge 1 tablet, By Mouth, Daily, 0 Refills, Maintenance, 08/07/16 9:45:51 Start Date: 08/07/16 Status: Ordered terazosin 5 mg oral capsule 5 mg, 1, capsule, By Mouth, Daily at bedtime, # 90 capsule, Refills 1, Tot. Refills 1, Soft Stop, 08/18/23 11:11:00 EST, Route to Pharmacy Electronically, [facility], 165, cm, 04/27/23 9:13:00 EDT, Height, 81.3, kg, 01/25/22 14:12:00 ED... Start Date: 08/18/23 Stop Date: 02/14/24 Status: Ordered Vitamin B12 0 Refills, Maintenance, [...] Confirmed Active 1Per chart review; GFR criteria Social History Social History Type Response Smoking Status Former smoker, quit more than 30 days ago; Tobacco user in household: No; Other: quit in the 80s; entered on: 12/21/18 Sex Patient Care team information Care Team Personnel Name: Zoraida Morris RN Position: [facility] LEGAL RESEARCHER Member Role: Primary Care Nurse Name: Julia Burns RN Position: [facility] AMB Nurse Member Role: Primary Care Nurse Name: Hermes Joy MD Position: [facility] Physician - Primary Care Member Role: PCP Address: Address: [address] [place] [id number]- Name: Kristine House RN Position: [facility] Outreach Member Role: Primary Care Nurse Care Team Related Persons Name: MAGALI SORENSEN Address: home [address] [place] [id number] Name: NILAY CLARK
--- OUTSIDE RECORDS SUMMARY | 2023-10-25 00:17 | XMS_ITS | Continuity of Care Document ---
Author Organization [facility] Address [address] [place] [address]- Care Team Providers Care Overhead Door Technician Name Role Phone Hermes Joy MD Primary Care Physician Encounter [facility] Date(s): 04/27/23 - [facility] [address] [place] [address]- Attending Physician: Jennifer Castañeda Admitting Physician: AdmJennifer crowe Referring Physician: Admtr, Jennifer Allergies, Adverse Reactions, Alerts Substance Reaction Severity [...] shop record 2Admin Note: vis 3Admin Note: VIS:7/26/11 Medications levothyroxine 0.088 mg oral tablet 1 [...] 02/23/23 9:30:00 EDT, Route to Pharmacy Electronically, [facility], 165, cm, 08/26/22 7:57:00 EST, [...] Team Personnel Name: Zoraida Morris RN Position: [facility] SKIVER COUNTER Member Role: Primary Care Nurse Name: Hermes Joy MD Position: [facility] Physician - Primary Care Member Role: PCP Address: Address: [address] [place] [id number]- Name: Kristine House RN Position: [facility] Outreach Member Role: Primary Care Nurse Care Team Related Persons Name: MAGALI SORENSEN Address: home [address] [place] [id number] Name: NILAY CLARK
--- OUTSIDE RECORDS SUMMARY | 2023-10-25 00:17 | XMS_ITS | Continuity of Care Document ---
Author Organization [facility] Address [address] [place] [address]- Care Team Providers Care Box Hinge And Lock Attacher Name Role Phone Hermes Joy MD Primary Care Physician [phone] [facility] Date(s): 06/16/22 - [facility] [address] [place] [address]- Encounter Diagnosis Dizziness(Discharge Diagnosis) - 06/16/22 Attending Physician: Milli ASSOCIATE DENTIST, Janey Winkler Allergies, Adverse Reactions, Alerts Substance Reaction Severity [...] Daily, # 90 tablet, 1 Refills, Maintenance, 06/17/22 16:36:00 EST, Tablet, [facility], Partial fill upon patient request if the prescription is for a schedule II opioid drug., 165, cm, 06/16/22 9:04:00 EST,... Start Date: 06/17/22 Status: Ordered lovastatin 20 mg oral tablet 1 tablet = 20 mg, By Mouth, Daily, # 90 tablet, 3 Refills, Soft Stop, 08/22/21 9:12:00 EST, [facility], 165, cm, 06/13/21 11:19:00 EST, [...] 08/22/21 9:11:00 EST, Route to Pharmacy Electronically, [facility], 165, cm, 06/13/21 11:19:00 EST, Height, 78.7, kg, 12/23/19 13:07:00 EDT, Dry Weight Start Date: 08/22/21 Status: Ordered omeprazole 20 mg oral enteric coated capsule 1 capsule = 20 mg, By Mouth, Daily, # 90 capsule, 3 Refills, Maintenance, 08/22/21 9:11:00 EST, EC Capsule, [facility], 165, cm, 06/13/21 11:19:00 EST, Height, 78.7, kg, 12/23/19 13:07:00 EDT, Dry Weight Start Date: 08/22/21 Status: Ordered One-A-Day Men Pro Edge 1 tablet, By Mouth, Daily, 0 Refills, Maintenance, 08/07/16 9:45:51 Start Date: 08/07/16 Status: Ordered terazosin 5 mg oral capsule 5 mg, 1, capsule, By Mouth, Daily at bedtime, # 90 capsule, Refills 1, Tot. Refills 1, Soft Stop, 02/17/22 8:37:00 EDT, Route to Pharmacy Electronically, [facility], 165, cm, 01/28/22 13:42:00 EDT, Height, 81.3, kg, 01/25/22 14:12:00 ED... Start Date: 02/17/22 Stop Date: 08/16/22 Status: Ordered Vitamin B12 0 Refills, Maintenance, [...] HLD (hyperlipidemia) Confirmed Active Hypothyroidism Confirmed Active Obese class I Confirmed Active Elbow pain, right Confirmed Active Plantar fascial fibromatosis Confirmed Active Varicosities of leg, Bilateral Confirmed Active Vitiligo Confirmed Active 1Per chart review; GFR criteria Diagnosis Diagnosis Type Effective Dates Health Status Clini diana Service Informant Dizziness Discharge Diagnosis 06/16/22 Vital Signs Most recent to oldest [Reference Range]: 1 2 Height 165 cm (06/16/22 9:04 AM) 165 cm (06/16/22 8:50 AM) Weight 81.8 kg (06/16/22 8:50 AM) Oxygen Saturation [94-100 %] 98 % (06/16/22 8:50 AM) Body Mass Index [18.5-24.99 kg/m2] 30.05 kg/m2 *>HHI* (06/16/22 8:50 AM) Blood Pressure [90-138/55-84 mm Hg] 110/ 68mm Hg (06/16/22 9:04 AM) Temperature [96.8-100.4 DegF] 97.4 DegF (06/16/22 8:50 AM) Mode of Delivery (Oxygen) Room air (06/16/22 8:50 AM) Blood pressure sites Arm, left (06/16/22 9:04 AM) Arm, left (06/16/22 8:50 AM) Temperature Route Temporal (06/16/22 8:50 AM) Weight Obtained Via Standing scale (06/16/22 8:50 AM) Social History Social History Type Response Smoking Status Former smoker, quit more than 30 days ago entered on: 02/18/22 Sex Note * Savannah Garcia [place]: PERFORM, SIGN, VERIFY Event Display: Patient Education/Instruction Authored Date: [id number] [facility] *BMP Quab Adlt Med Bltn Clinical Summary Name VERONICA MCKNIGHT Age 77 Years 1945 PCP Hermes Joy MD PCP Visit Date 06/16/2022 08:44:00 Additional Instructions: Scheduled Appointments?? Future Appointments ?*BMP??Quab??Adlt??Med??Bltn ?[address]??[place],??[place],??[address] ?Phone:??--?Fax:??-- ?Appt. Date:??08/26/2022?7:20 AM ?Scheduled Provider:??Hermes Joy MD Follow-Up Instructions ?? With: Address: When: Pt will f/u with PCP as planned. Diagnosis Medications: Please continue your medications until treatment is completed or stopped by your provider. Discuss any questions related to medications with your provider. Medications to Continue with No Changes These medications were not printed or sent to your pharmacy Ascorbic Acid (Vitamin C 250 mg oral tablet) 1 tab(s) Oral Daily. Next Dose: Cyanocobalamin (Vitamin B12) Next Dose: Levothyroxine (levothyroxine 75 mcg (0.075 mg) oral tablet) 1 tab(s) Oral Daily. Refills: 0. Next Dose: Lovastatin (lovastatin 20 mg oral tablet) 1 tab(s) Oral Daily for 90 Days. Refills: 3. Next Dose: Metoprolol (metoprolol 25 mg oral tablet, extended release) 1 tab(s) Oral Daily. Refills: 3. Next Dose: Multivitamin With Minerals (One-A-Day Men Pro Edge) 1 tab(s) Oral Daily. Next Dose: Omeprazole (omeprazole 20 mg oral enteric coated capsule) 1 capsule Oral Daily. Refills: 3. Next Dose: Psyllium (Metamucil Powder) 1 pack/packet Oral Daily. Next Dose: Terazosin (terazosin 5 mg oral capsule) 1 capsule Oral Daily at Bedtime for 90 Days. Refills: 1. Next Dose: Vitamin E (vitamin E 400 iu oral capsule) 1 capsule Oral Daily. Next Dose: Allergy Info:?? Pollen; Dust Medications Given This Visit Future Orders ?Comprehensive Metabolic Panel? Order Date:06/16/22?- Complete by?06/16/22 ?Thyroid Panel? Order Date:06/16/22?- Complete on or after?06/16/22 ?Transferrin? Order Date:06/16/22?- Complete by?06/16/22 ?Vitamin B12 Level? Order Date:06/16/22?- Complete on or after?06/16/22 ?Iron + Iron Binding Capacity? Order Date:06/16/22?- Complete by?06/16/22 ?CBC w/ Differential? Order Date:06/16/22?- Complete on or after?06/16/22 ?Folate Level? Order Date:06/16/22?- Complete by?06/16/22 ?Reticulocyte Ct? Order Date:06/16/22?- Complete by?06/16/22 ?LDH? Order Date:06/16/22?- Complete by?06/16/22 ?Ferritin? Order Date:06/16/22?- Complete by?06/16/22 Vital Signs Height 165 cm Weight 81.8 kg BMI 30.05 kg/m2 Blood Pressure 110 mm Hg/68 mm Hg Temperature 97.4 DegF Pulse Rate Respiratory Rate 02 Sat Mode of Delivery 98 %/Room air You can now view a summary of your hospital visit from the comfort of your home through a free online portal called Zizerones. Zizerones is a website that allows you to securely view your medical information including discharge summary, medications and follow-up visits. ??You can alsosend a secure electronic message to your doctor???s office to request appointments, renew medications or just ask a question. You can enroll at [email or web address] or register during your next office visit. [...] primary care provider, you may find a [facility] provider by calling [facility] [employer] [facility] at [phone]. For information about the plan of care including goals and instructions for your diagnosis, please see the patient education orders section of this document. Patient Education Materials?? The content of this educational material or handout may have been modified, supplemented, or adapted from its original content and format to support your individualized medical care. Fainting: Uncertain Cause Fainting (syncope) is a temporary loss of consciousness. It???s also called passing out. It occurs when blood flow to the brain is less than normal. Near- fainting (near-syncope) is very similar to fainting, but you don???t fully pass out. Common minor causes of fainting include: ??? Sudden fear ??? Pain ??? Nausea ??? Emotional stress ??? Overexertion Suddenly standing up after sitting or lying for a long time can also cause fainting. More serious causes of fainting include: ??? Very slow or very fast heartbeat (arrhythmia) ??? Other types of heart disease ??? Dehydration ??? Loss of blood loss ??? Seizure ??? Stroke ??? Ruptured blood vessel in the brain Taking too much high blood pressure medicine can also cause low blood pressure and fainting. Your health care provider does not know the exact cause of your fainting. But the tests today did not show any of the serious causes of fainting. Sometimes you may need more tests to find out if you have a serious problem. That???s why it???s important to follow up with your provider as advised. Home care Follow these guidelines when caring for yourself at home: ??? Rest today. You may go back to your normal activities when you are feeling back to normal. It is best to stay with someone who can check on you for the next 24 hours to watch for another episode of fainting. ??? If you become lightheaded or dizzy, lie down right away. Or sit with your head between your knees. ??? Because the provider doesn???t know the exact cause of your fainting or near-fainting spell, it???s possible for you to have another spell without warning. Because of this, don???t drive a car oroperate dangerous equipment. Don???t take a bath alone. Use a shower instead. Don???t swim alone??until your health care provider says that you are no longer in danger of having another fainting spell. Follow-up care Follow up with your health care provider, or as advised. When to seek medical advice Call your health care provider right away if any of these occur: ??? Another fainting spell that???s not explained by the common causes listed above ??? Pain in your chest, arm, neck, jaw, back, or abdomen ??? Shortness of breath ??? Severe headache or seizure ??? Blood in vomit or stools (black or red color) ??? Unexpected vaginal bleeding ??? Your heart beats very rapidly, very slowly, or irregularly (palpitations) Also call your provider if you have signs of stroke: ??? Weakness in an arm or leg or on one side of the face ??? Difficulty speaking or seeing ??? Extreme drowsiness, confusion, dizziness, or fainting ?? [id number] [employer]. [address] [place] [address], [place] [address]. All rights reserved. This information is not intended as a substitute for professional medical care. Always follow your healthcare professional's instructions. Dizziness (Uncertain Cause) Dizziness is a common symptom. It may be described as lightheadedness, spinning, or feeling like you are going to faint. Dizziness can have many causes. Be sure to tell the healthcare provider about: ??? All medicines you take, including prescription, [id number], herbs, and supplements ??? Any other symptoms you have ??? Any health problems you are being treated for ??? Anything that causes the dizziness to get worse or better Today's exam did not show an exact cause for your dizziness.??Other tests may be needed. Follow up with your healthcare provider. Home care ??? Dizziness that occurs with sudden standing may be a sign of mild dehydration. Drink extra fluids for the next few days. ??? If you recently started a new medicine, stopped a medicine, or had the dose of a current medicine changed,??talk with the prescribing healthcare provider. Your medicine plan may need adjustment. ??? If dizziness lasts more than a few seconds, sit or lie down until it passes. This may help prevent injury in case you pass out. ??? Do not drive??or use power tools or dangerous equipment until you have had no dizziness for at least 48 hours. Follow-up care Follow up with your healthcare provider for further evaluation within the next 7 days or as advised. When to seek medical advice Call your healthcare provider for any of the following: ??? Worsening of symptoms or new symptoms ??? Passing out or seizure ??? Repeated vomiting ??? Headache ??? Palpitations (the sense that your heart is fluttering or beating fast or hard) ??? Shortness of breath ??? Blood in vomit or stool (black or red color) ??? Weakness of an arm or leg or one side of the face ??? Vision or hearing changes ??? Trouble walking or speaking ??? Chest, arm, neck, back, or jaw pain ?? [phone] [employer]. [address] [place] [address]. All rights reserved. This information is not intended as a substitute for professional medical care. Always follow your healthcare professional's instructions. Patient Care team information Care Team Personnel Name: Zoraida Morris RN Position: [facility] FAMILY RESOURCE SPECIALIST No Tools Member Role: Primary Care Nurse Name: Hermes Joy MD Position: [facility] Primary Care Physician Member Role: PCP Address: Address: [address] [place] [address]- Care Team Related Persons Name: MAGALI SORENSEN Address: home [address] [place] [address] Name: NILAY CLARK
--- OUTSIDE RECORDS SUMMARY | 2023-10-25 00:17 | XMS_ITS | Continuity of Care Document ---
Author Organization [facility] Address [address] [place] [address]- Care Team Providers Care Home Appliance Installer Name Role Phone Hermes Joy MD Primary Care Physician Encounter [facility] Date(s): 06/13/21 - [facility] [address] [place] [address]- Encounter Diagnosis HTN - Hypertension(Discharge Diagnosis) - 06/13/21 Hypothyroidism(Discharge Diagnosis) - 06/13/21 CKD (chronic kidney disease)(Discharge Diagnosis) - 06/13/21 Suarez's esophagus(Discharge Diagnosis) - 06/13/21 HLD (hyperlipidemia)(Discharge Diagnosis) - 06/13/21 Enlarged prostate(Discharge Diagnosis) - 06/13/21 Attending Physician: Hermes Joy MD Allergies, Adverse [...] mcg, By Mouth, Daily, # 90 tablet, 0 Refills, Maintenance, 06/07/21 10:47:00 EST, Tablet, [id number], Partial fill upon patient request if the prescription is for a schedule II opioid drug., 165, cm, 11/20/20 9:45:00 EDT, Edvin Start Date: 06/07/21 Status: Ordered lovastatin 20 mg oral tablet 1 tablet = 20 mg, By Mouth, Daily, # 90 tablet, 0 Refills, Soft Stop, 04/18/21 9:32:00 EDT, [facility], 165, cm, 11/20/20 9:45:00 EDT, Height, 78.7, kg, 12/23/19 13:07:00 EDT, Dry Weight Start Date: 04/18/21 Stop Date: 07/17/21 Status: Ordered Metamucil Powder 1 packet, By Mouth, Daily, 0 Refills, Maintenance, 08/07/16 9:46:10, Powder Start Date: 08/07/16 Status: Ordered metoprolol 25 mg oral tablet, extended release 25 mg, 1, tablet, By Mouth, Daily, # 90 tablet, Refills 0, Tot. Refills 0, Maintenance, 05/29/21 8:34:00 EST, Route to Pharmacy Electronically, [facility], 165, cm, 11/20/20 9:45:00 EDT, Height, 78.7, kg, 12/23/19 13:07:00 EDT, Dry Weight Start Date: 05/29/21 Status: Ordered omeprazole 20 mg oral enteric coated capsule 1 capsule = 20 mg, By Mouth, Daily, # 90 capsule, 1 Refills, Maintenance, 01/25/21 8:22:00 EDT, EC Capsule, [facility] [...] Refills 0, Tot. Refills 0, Soft Stop, 05/22/21 8:44:00 EST, Route to Pharmacy Electronically, [facility], 165, cm, 11/20/20 9:45:00 EDT, Height, 78.7, kg, 12/23/19 13:07:00 EDT... Start Date: 05/22/21 Stop Date: 08/20/21 Status: Ordered Vitamin B12 0 Refills, Maintenance, [...] Varicosities of leg, Bilateral(Confirmed) Active Vitiligo(Confirmed) Active Diagnosis Diagnosis Type Effective Dates Health Status Clinical Service Informant HTN - Hypertension Discharge Diagnosis 06/13/21 Hypothyroidism Discharge Diagnosis 06/13/21 CKD (chronic kidney disease) Discharge Diagnosis 06/13/21 Suarez's esophagus Discharge Diagnosis 06/13/21 HLD (hyperlipidemia) Discharge Diagnosis 06/13/21 Enlarged prostate Discharge Diagnosis 06/13/21 Vital Signs Most recent to oldest [Reference Range]: 1 Height 165 cm (06/13/21 11:19 AM) Weight 80.1 kg (06/13/21 11:19 AM) Oxygen Saturation [94-100 %] 97 % (06/13/21 11:19 AM) Pulse Rate [55-90 bpm] 65 bpm (06/13/21 11:19 AM) Body Mass Index [18.5-24.99] 29.42 *H* (06/13/21 11:19 AM) Blood Pressure [90-138/55-84 mm Hg] 130/ 70mm Hg (06/13/21 11:19 AM) Liters per Minute 0 L/min (06/13/21 11:19 AM) Mode of Delivery (Oxygen) Room air (06/13/21 11:19 AM) Blood pressure sites Arm, right (06/13/21 11:19 AM) Weight Obtained Via Standing scale (06/13/21 11:19 AM) Social History Social History Type Response Smoking Status Former smoker, quit more than 30 days ago entered on: 11/13/20 Sex
--- OUTSIDE RECORDS SUMMARY | 2023-10-25 00:17 | XMS_ITS | Continuity of Care Document ---
Author Organization [facility] Address [address] [place] [address]- Care Team Providers Care Director Of Religious Activities Name Role Phone Hermes Joy MD Primary Care Physician Encounter [facility] Date(s): 06/17/22 - 07/17/22 [facility] [address] [place] [address]- [place] Allergies, Adverse Reactions, Alerts Substance Reaction Severity [...] a schedule II opioid drug., 165, cm, 12/12/22 9:04:00 EST,... Start Date: 06/17/22 Status: Ordered [...] 08/22/21 9:11:00 EST, Route to Pharmacy Electronically, [facility], 165, cm, 06/13/21 11:19:00 EST, Height, 78.7, kg, 12/23/19 13:07:00 EDT, Dry Weight Start Date: 08/22/21 Status: Ordered omeprazole 20 mg oral enteric coated capsule 1 capsule = 20 mg, By Mouth, Daily, # 90 capsule, 3 Refills, Maintenance, 08/22/21 9:11:00 EST, EC Capsule, [facility], 165, cm, 06/13/21 11:19:00 EST, [...] 02/17/22 8:37:00 EDT, Route to Pharmacy Electronically, [facility], 165, cm, 01/28/22 [...] 30 days ago entered on: 02/18/22 Sex Patient Care team information Care Team Personnel Name: Zoraida Morris RN Position: [facility] POSTMASTER No Tools Member Role: Primary Care Nurse Name: Hermes Joy MD Position: [facility] Primary Care Physician Member Role: PCP Address: Address: [address] [place], [place] [address] Care Team Related Persons Name: MAGALI SORENSEN Address: home [address] [place] [address] Name: NILAY CLARK
--- OUTSIDE RECORDS SUMMARY | 2023-10-25 00:17 | XMS_ITS | Continuity of Care Document ---
Author Organization [facility] Address [address] [place] [address]- Care Team Providers Care Fractionation Plant Supervisor Name Role Phone Hermes Joy MD Primary Care Physician Encounter [facility] Date(s): 06/16/22 - [facility]16/[facility] [address] [place] [address]- [place] Allergies, Adverse Reactions, Alerts Substance Reaction [...] 08/22/21 9:11:00 EST, Route to Pharmacy Electronically, [facility], 165, cm, 06/13/21 11:19:00 EST, Height, 78.7, kg, 12/23/19 13:07:00 EDT, Dry Weight Start Date: 08/22/21 Status: Ordered omeprazole 20 mg oral enteric coated capsule 1 capsule = 20 mg, By Mouth, Daily, # 90 capsule, 3 Refills, Maintenance, 08/22/21 9:11:00 EST, EC Capsule, [facility], 165, cm, 06/13/21 11:19:00 EST, [...] 02/17/22 8:37:00 EDT, Route to Pharmacy Electronically, [facility], 165, cm, 01/28/22 [...] Team Personnel Name: Zoraida Morris RN Position: [facility] CLINICAL INFORMATICS SPEC No Tools Member Role: Primary Care Nurse Name: Hermes Joy MD Position[facility] Primary Care Physician Member Role: PCP Address: Address: [address] [place], [place] [address] Care Team Related Persons Name: MAGALI SORENSEN Address: home [address] [place] [address] Name: NILAY CLARK
--- OUTSIDE RECORDS SUMMARY | 2023-10-25 00:17 | XMS_ITS | Continuity of Care Document ---
Author Organization [facility] Address [address] [place] [address]- Care Team Providers Care Pocket Builder Name Role Phone Hermes Joy MD Primary Care Physician Encounter [facility] Date(s): 04/18/21 - [facility]18/[facility] [address] [place] [address]- Allergies, Adverse Reactions, Alerts Substance Reaction Severity [...] = 88 mcg, By Mouth, Daily, # 60 tablet, 0 Refills, Maintenance, 04/09/21 12:35:00 EDT, Tablet, [facility], Partial fill upon patient request if the prescription is for a schedule II opioid drug., 165, cm, 11/20/20 9:45:00 EDT, Heig... Start Date: 04/09/21 Status: Ordered lovastatin 20 mg oral tablet [...] tablet, Refills 0, Tot. Refills 0, Maintenance, 02/28/21 9:23:00 EDT, Route to Pharmacy Electronically, [facility], Rx resent from 06/23/19., 165, cm, 11/20/20 9:45:00 EDT, Height, 78.7, kg, 12/22... Start Date: 02/28/21 Status: Ordered omeprazole 20 mg oral enteric coated capsule 1 capsule = 20 mg, By Mouth, Daily, # 90 capsule, 1 Refills, Maintenance, 01/25/21 8:22:00 EDT, EC Capsule, [facility], 165, cm, 11/20/20 9:45:00 EDT, [...]
--- OUTSIDE RECORDS SUMMARY | 2023-10-25 00:17 | XMS_ITS | Continuity of Care Document ---
Author Organization [facility] Address [address] [place] [address]- Care Team Providers Care Mini Shifter Name Role Phone Hermes Joy MD Primary Care Physician [phone] Encounter [facility] Date(s): 01/28/22 - 02/04/22 [facility] [address] [place] [address]- Attending Physician: Hermes Joy MD Allergies, Adverse [...] 1 Refills, Maintenance, 09/04/21 11:07:00 EST, Tablet, [facility], Partial fill upon patient request if the prescription is for a schedule II opioid drug., 165, cm, 06/13/21 11:19:00 EST, Hei... Start Date: 09/04/21 Status: Ordered lovastatin 20 mg oral tablet 1 tablet = 20 mg, By Mouth, Daily, # 90 tablet, 3 Refills, Soft Stop, 08/22/21 9:12:00 EST, [facility], 165, cm, 06/13/21 11:19:00 EST, [...] 08/22/21 9:11:00 EST, Route to Pharmacy Electronically, [email or web address], 165, cm, 06/13/21 11:19:00 EST, Height, 78.7, kg, 12/23/19 13:07:00 EDT, Dry Weight Start Date: 08/22/21 Status: Ordered omeprazole 20 mg oral enteric coated capsule 1 capsule = 20 mg, By Mouth, Daily, # 90 capsule, 3 Refills, Maintenance, 08/22/21 9:11:00 EST, EC Capsule, [facility], 165, cm, 06/13/21 11:19:00 EST, Height, 78.7, kg, 12/23/19 13:07:00 EDT, Dry Weight Start Date: 08/22/21 Status: Ordered One-A-Day Men Pro Edge 1 tablet, By Mouth, Daily, 0 Refills, Maintenance, 08/07/16 9:45:51 Start Date: 08/07/16 Status: Ordered Paxlovid 150 mg-100 mg oral tablet 1 tablet, By Mouth, 2 times a day, # 10 tablet, 0 Refills, Maintenance, 10/18/21 16:13:00 EDT, [facility] #1230, Partial fill upon patient request if the prescription is for a schedule II opioid drug., 1 tablet By Mouth 2 times a day,x5 days, 165, c... Start Date: 10/18/21 Stop Date: 10/23/21 Status: Ordered terazosin 5 mg oral capsule [...] Varicosities of leg, Bilateral(Confirmed) Active Vitiligo(Confirmed) Active Vital Signs Most recent to oldest [Reference Range]: 1 Height 165 cm (01/28/22 1:42 PM) Weight 81.6 kg (01/28/22 1:42 PM) Oxygen Saturation [94-100 %] 97 % (01/28/22 1:42 PM) Pulse Rate [55-90 bpm] 59 bpm (01/28/22 1:42 PM) Body Mass Index [18.5-24.99] 29.97 *H* (01/28/22 1:42 PM) Blood Pressure [90-138/55-84 mm Hg] 142/ 76mm Hg *H* (01/28/22 1:42 PM) Temperature [96.8-100.4 DegF] 97.5 DegF (01/28/22 1:42 PM) Mode of Delivery (Oxygen) Room air (01/28/22 1:42 PM) Blood pressure sites Arm, left (01/28/22 1:42 PM) Temperature Route Temporal (01/28/22 1:42 PM) Weight Obtained Via Standing scale (01/28/22 1:42 PM) Social History Social History Type Response Smoking Status Former smoker, quit more than 30 days ago; Tobacco user in household: No; Other: quit in the 80s; entered on: 12/21/18 Sex
--- OUTSIDE RECORDS SUMMARY | 2023-10-25 00:17 | XMS_ITS | Continuity of Care Document ---
Author Organization [facility] Address [address] [place] [address]- Care Team Providers Care Music Minister Name Role Phone Hermes Joy MD Primary Care Physician [phone] Encounter [facility] Date(s): 12/17/22 - 01/16/23 [facility] [address] [place] [address]- [place] Allergies, Adverse Reactions, Alerts Substance Reaction [...] Daily, # 90 tablet, 1 Refills, Maintenance, 12/17/22 8:58:00 EDT, Tablet, [facility], Partial fill upon patient request if the prescription is for a schedule II opioid drug., 165, cm, 08/26/22 7:57:00 EST, H... Start Date: 12/17/22 Status: Ordered lovastatin 20 mg oral tablet 1 tablet = 20 mg, By Mouth, Daily, # 90 tablet, 1 Refills, Soft Stop, 10/27/22 8:44:00 EDT, [facility], 165, cm, 08/26/22 7:57:00 EST, Height, 81.3, kg, 01/25/22 14:12:00 EDT, Dry Weight Start Date: 10/27/22 Stop Date: 04/25/23 Status: Ordered Metamucil Powder 1 packet, By Mouth, Daily, 0 Refills, Maintenance, 08/07/16 9:46:10, Powder Start Date: 08/07/16 Status: Ordered metoprolol 25 mg oral tablet, extended release 25 mg, 1, tablet, By Mouth, Daily, # 90 tablet, Refills 1, Tot. Refills 1, Maintenance, 08/26/22 8:33:00 EST, Route to Pharmacy Electronically, [facility], 165, cm, 08/26/22 7:57:00 EST, Height, 81.3, kg, 01/25/22 14:12:00 EDT, Dry Weight Start Date: 08/26/22 Status: Ordered omeprazole 20 mg oral enteric coated capsule 1 capsule = 20 mg, By Mouth, Daily, # 90 capsule, 0 Refills, Maintenance, 10/20/22 14:46:00 EDT, ECCapsule, [facility], 165, cm, 08/26/22 7:57:00 EST, Height, 81.3, kg, 01/25/22 14:12:00 EDT, Dry Weight Start Date: 10/20/22 Status: Ordered One-A-Day Men Pro Edge 1 tablet, By Mouth, Daily, 0 Refills, Maintenance, 08/07/16 9:45:51 Start Date: 08/07/16 Status: Ordered terazosin 5 mg oral capsule 5 mg, 1, capsule, By Mouth, Daily at bedtime, # 90 capsule, Refills 1, Tot. Refills 1, Soft Stop, 08/19/22 12:39:00 EST, Route to Pharmacy Electronically, [facility], 165, cm, 06/16/22 9:04:00 EST, Height, 81.3, kg, 01/25/22 14:12:00 ED... Start Date: 08/19/22 Stop Date: 02/15/23 Status: Ordered Vitamin B12 0 Refills, Maintenance, [...] Team Personnel Name: Zoraida Morris RN Position: [facility] NETWORK SPECIALIST Member Role: Primary Care Nurse Name: Hermes Joy MD Position: [facility] Physician - Primary Care Member Role: PCP Address: Address: [address] [place] [id number] Care Team Related Persons Name: MAGALI SORENSEN Address: home [address] [place] [id number] Name: NILAY CLARK
--- OUTSIDE RECORDS SUMMARY | 2023-10-25 00:17 | XMS_ITS | Continuity of Care Document ---
Author Organization [facility] Address [address] [place] [address]- Care Team Providers Care Perforating Machine Operator Name Role Phone Hermes Joy MD Primary Care Physician Encounter [facility] Date(s): 08/26/23 - 09/25/23 [facility] [address] [place] [address]- [place] Allergies, Adverse Reactions, Alerts Substance Reaction [...] 1 Refills, Maintenance, 09/14/23 8:28:00 EDT, Tablet, [facility], Partial fill upon patient request if the prescription is for a schedule II opioid drug., 165, cm, 04/27/23 9:13:00 EDT, H... Start Date: 09/14/23 Status: Ordered lovastatin 20 mg oral tablet 1 tablet = 20 mg, By Mouth, Daily, # 90 tablet, 1 Refills, Soft Stop, 02/26/23 7:52:00 EDT, [facility], 165, cm, 02/26/23 7:30:00 [...] 08/26/23 8:27:00 EST, Route to Pharmacy Electronically, [facility], 165, cm, 04/27/23 9:13:00 EDT, Height, 81.3, kg, 01/25/22 14:12:00 EDT, Dry Weight Start Date: 08/26/23 Status: Ordered omeprazole 20 mg oral enteric coated capsule 1 capsule = 20 mg, By Mouth, Daily, # 90 capsule, 1 Refills, Maintenance, 02/26/23 7:52:00 EDT, EC Capsule, [facility], 165, cm, 02/26/23 7:30:00 [...] HLD (hyperlipidemia) Confirmed Active Hypothyroidism Confirmed Active IFG (impaired fasting glucose) Confirmed Active Obese class I Confirmed Active [...] Team Personnel Name: Zoraida Morris RN Position: [facility] PETROLEUM REFINING EQUIPMENT OPERATOR Member Role: Primary Care Nurse Name: Julia Burns RN Position: [facility] AMB Nurse Member Role: Primary Care Nurse Name: Hermes Joy MD Position: [facility] Physician - Primary Care Member Role: PCP Address: Address: [address] [place] [address]- Name: Kristine House RN Position: [facility] Outreach Member Role: Primary Care Nurse Care Team Related Persons Name: MAGALI SORENSEN Address: home [address] [place] [id number] Name: NILAY CLARK
--- OUTSIDE RECORDS SUMMARY | 2023-10-25 00:17 | XMS_ITS | Continuity of Care Document ---
Author Organization [facility] Address [address] [place] [address]- Care Team Providers Care Migratory Game Bird Biologist Name Role Phone Hermes Joy MD Primary Care Physician [phone] Encounter [facility] Date(s): 06/06/21 - 07/06/21 [facility] [address] [place] [address]- Allergies, Adverse Reactions, Alerts Substance Reaction Severity [...] 0 Refills, Maintenance, 06/07/21 10:47:00 EST, Tablet, [facility], Partial fill upon patient request if the prescription is for a schedule II opioid drug., 165, cm, 11/20/20 9:45:00 EDT, Hemeli... Start Date: 06/07/21 Status: Ordered lovastatin 20 mg oral tablet 1 tablet = 20 mg, By Mouth, Daily, # 90 tablet, 0 Refills, Soft Stop, 04/18/21 9:32:00 EDT, [facility], 165, cm, 11/20/20 9:45:00 EDT, [...] 05/29/21 8:34:00 EST, Route to Pharmacy Electronically, [facility], 165, cm, 11/20/20 9:45:00 EDT, Height, 78.7, kg, 12/23/19 13:07:00 EDT, Dry Weight Start Date: 05/29/21 Status: Ordered omeprazole 20 mg oral enteric coated capsule 1 capsule = 20 mg, By Mouth, Daily, # 90 capsule, 1 Refills, Maintenance, 01/25/21 8:22:00 EDT, EC Capsule, [facility], 165, cm, 11/20/20 9:45:00 EDT, [...]
--- OUTSIDE RECORDS SUMMARY | 2023-10-25 00:17 | XMS_ITS | Continuity of Care Document ---
Author Organization [facility] Address [address] [place] [address]- Care Team Providers Care Beam Builder Name Role Phone Hermes Joy MD Primary Care Physician En[facility] Date(s): 06/17/22 - [facility]17/[facility] [address] [place] [address]- [place] Allergies, Adverse Reactions, Alerts Substance Reaction [...] 08/22/21 9:11:00 EST, Route to Pharmacy Electronically, [facility], 165, cm, 06/13/21 11:19:00 EST, Height, 78.7, kg, 12/23/19 13:07:00 EDT, Dry Weight Start Date: 08/22/21 Status: Ordered omeprazole 20 mg oral enteric coated capsule 1 capsule = 20 mg, By Mouth, Daily, # 90 capsule, 3 Refills, Maintenance, 08/22/21 9:11:00 EST, EC Capsule, [facility], 165, cm, 06/13/21 11:19:00 EST, [...] 02/17/22 8:37:00 EDT, Route to Pharmacy Electronically, [facility], 165, cm, 01/28/22 [...] Team Personnel Name: Zoraida Morris RN Position: [facility] SIGN BOARD ERECTOR No Tools Member Role: Primary Care Nurse Name: Hermes Joy MD Position: [facility] Primary Care Physician Member Role: PCP Address: Address: [address] [place], [place] [address] Care Team Related Persons Name: MAGALI SORENSEN Address: home [address] [place] [address] Name: NILAY CLARK
--- OUTSIDE RECORDS SUMMARY | 2023-10-25 00:17 | XMS_ITS | Continuity of Care Document ---
Author Organization [facility] Address [address] [place] [address]- Care Team Providers Care Cap Jewel Plate Assembler Name Role Phone Hermes Joy MD Primary Care Physician [id number] Date(s): 08/17/20 - 09/16/20 [facility] [address] [place] [address]- Allergies, Adverse Reactions, Alerts Substance Reaction Severity [...] 1 Refills, Maintenance, 04/16/20 9:24:00 EDT, Tablet, [facility], Rx resent from 12/21/18., 165, cm, 12/23/19 13:07:00 EDT, Height, 78.7, kg, 12/23/19 13:07:00 EDT, Dry Weight Start Date: 04/16/20 Status: Ordered lovastatin 20 mg oral tablet 1 tablet = 20 mg, By Mouth, Daily, # 90 tablet, 1 Refills, Soft Stop, 07/18/20 11:21:00 EST, [facility], 165, cm, 12/23/19 13:07:00 EDT, [...] 06/04/20 8:17:00 EST, Route to Pharmacy Electronically, [facility], Rx resent from 06/23/19., 165, cm, 12/23/19 13:07:00 EDT, Height, 78.7, kg, 12/04... Start Date: 06/04/20 Status: Ordered omeprazole 20 mg oral enteric coated capsule 1 capsule = 20 mg, By Mouth, Daily, # 90 capsule, 1 Refills, Maintenance, 07/25/20 10:06:00 EST, ECCapsule, [facility], 165, cm, 12/23/19 13:07:00 EDT, [...]
--- OUTSIDE RECORDS SUMMARY | 2023-10-25 00:18 | XMS_ITS | Continuity of Care Document ---
Author Organization [facility] Address [address] [place] [address]- Care Team Providers Care Account Clerk Name Role Phone Hermes Joy MD Primary Care Physician [phone] Encounter [facility] Date(s): 09/16/21 - 09/16/[address] [address]- Discharge Disposition: A-D/C Home Attending Physician: Flako Mcgowan MD Admitting Physician: Flako Mcgowan MD Referring Physician: Flako Mcgowan MD Allergies, Adverse Reactions, Alerts Substance Reaction [...] 1 Refills, Maintenance, 09/04/21 11:07:00 EST, Tablet, [facility], Partial fill upon patient [...] 08/22/21 9:11:00 EST, Route to Pharmacy Electronically, [facility], 165, cm, 06/13/21 11:19:00 EST, Height, 78.7, kg, 12/23/19 13:07:00 EDT, Dry Weight Start Date: 08/22/21 Status: Ordered omeprazole 20 mg oral enteric coated capsule 1 capsule = 20 mg, By Mouth, Daily, # 90 capsule, 3 Refills, Maintenance, 08/22/21 9:11:00 EST, EC Capsule, [facility], 165, cm, 06/13/21 11:19:00 EST, [...] recent to oldest [Reference Range]: 1 2 3 Height 165 cm (09/16/21 12:46 PM) Oxygen Saturation [94-100 %] 97 % (09/16/21 2:21 PM) 96 % (09/16/21 2:16 PM) 96 % (09/16/21 2:11 PM) Pulse Rate [55-90 bpm] 55 bpm (09/16/21 1:56 PM) 60 bpm (09/16/21 12:46 PM) Blood Pressure [90-138/55-84 mm Hg] 132/76mm Hg (09/16/21 2:21 PM) 125/60mm Hg (09/16/21 2:16 PM) 124/60mm Hg (09/16/21 2:11 PM) Respiratory Rate [16-30 br/min] 16 br/min (09/16/21 2:21 PM) 18 br/min (09/16/21 2:16 PM) 15 br/min *L* (09/16/21 2:11 PM) Temperature [96.8-100.4 DegF] 97.9 DegF (09/16/21 12:46 PM) Mode of Delivery (Oxygen) Room air (09/16/21 2:21 PM) Room air (09/16/21 2:16 PM) Room air (09/16/21 2:11 PM) Blood pressure sites Arm, right (09/16/21 2:21 PM) Arm, right (09/16/21 2:16 PM) Arm, right (09/16/21 2:11 PM) Temperature Route Temporal (09/16/21 12:46 PM) Dry Weight 75 kg (09/16/21 12:46 PM) Dry Weight Obtained Via Patient/family s tated (09/16/21 12:46 PM) Social History Social History Type Response Smoking Status Former smoker, quit more than 30 days ago; Tobacco user in household: No; Other: quit in the 80s; entered on: 12/21/18 Sex
--- OUTSIDE RECORDS SUMMARY | 2023-10-25 00:18 | XMS_ITS | Continuity of Care Document ---
Author Organization [facility] Address [address] [place] [address]- Care Team Providers Care Scale Agent Name Role Phone Hermes Joy MD Primary Care Physician [phone] Encounter [facility] Date(s): 07/18/21 - 08/17/21 [facility] [address] [place] [address]- [place] Allergies, Adverse Reactions, Alerts Substance Reaction [...] 0 Refills, Maintenance, 06/07/21 10:47:00 EST, Tablet, [id number], Partial fill upon patient request if the prescription is for a schedule II opioid drug., 165, cm, 11/20/20 9:45:00 EDT, Ivan. Start Date: 06/07/21 Status: Ordered lovastatin 20 mg oral tablet 1 tablet = 20 mg, By Mouth, Daily, # 90 tablet, 1 Refills, Soft Stop, 07/18/21 11:00:00 EST, [facility], 165, cm, 06/13/21 11:19:00 EST, Height, 78.7, kg, 12/23/19 13:07:00 EDT, Dry Weight Start Date: 07/18/21 Stop Date: 01/14/22 Status: Ordered Metamucil Powder 1 packet, By Mouth, Daily, 0 Refills, Maintenance, 08/07/16 9:46:10, Powder Start Date: 08/07/16 Status: Ordered metoprolol 25 mg oral tablet, extended release 25 mg, 1, tablet, By Mouth, Daily, # 90 tablet, Refills 0, Tot. Refills 0, Maintenance, 05/29/21 8:34:00 EST, Route to Pharmacy Electronically, [facility], 165, cm, 11/20/20 9:45:00 EDT, Height, 78.7, kg, 12/23/19 13:07:00 EDT, Dry Weight Start Date: 05/29/21 Status: Ordered omeprazole 20 mg oral enteric coated capsule 1 capsule = 20 mg, By Mouth, Daily, # 90 capsule, 0 Refills, Maintenance, 07/19/21 9:04:00 EST, EC Capsule, [facility], 165, cm, 06/13/21 11:19:00 EST, Height, 78.7, kg, 12/23/19 13:07:00 EDT, Dry Weight Start Date: 07/19/21 Status: Ordered One-A-Day Men Pro Edge 1 [...]
--- OUTSIDE RECORDS SUMMARY | 2023-10-25 00:18 | XMS_ITS | Continuity of Care Document ---
Author Organization [facility] Address [address] [place] [address]- Care Team Providers Care Gear Machine Operator General Name Role Phone Hermes Joy MD Primary Care Physician [phone] Encounter [facility] Date(s): 12/23/19 - 12/23/[address] [address]- [place] Discharge Disposition: A-D/C Home Attending Physician: Simone Avina MD Admitting Physician: Simone Avina MD Referring Physician: Not on Staff, Referring MD Allergies, Adverse Reactions, Alerts Substance Reaction Severity Status Dust Active Pollen Active Immunizations Given and Recorded Vaccine Date Status Refusal Reason influenza virus vaccine, inactivated 1 05/27/17 Re [...] Daily, # 90 tablet, 1 Refills, Maintenance, 06/23/19 8:20:00 EST, Tablet, [id number], Rx resent from 12/21/18., 165, cm, 06/23/19 8:05:00 EST, Height Start Date: 06/23/19 Status: Ordered lovastatin 20 mg oral tablet [...] By Mouth, Daily, # 90 tablet, Refills 2, Tot. Refills 2, Maintenance, 09/06/19 8:29:00 EST, Route to Pharmacy Electronically, [id number], Rx resent from 06/23/19., 165, cm, 06/23/19 8:05:00 EST, Height Start Date: 09/06/19 Status: Ordered omeprazole 20 mg oral enteric coated capsule 1 capsule = 20 mg, By Mouth, Daily, # 90 capsule, 0 Refills, Maintenance, EC Capsule Start Date: 03/07/11 Status: Ordered One-A-Day Men Pro Edge 1 tablet, By Mouth, Daily, 0 Refills, Maintenance, 08/07/16 9:45:51 Start Date: 08/07/16 Status: Ordered terazosin 5 mg oral capsule 5 mg, 1, capsule, By Mouth, Daily at bedtime, # 90 capsule, Refills 2, Tot. Refills 2, Soft Stop, 11/23/19 12:02:00 EDT, Route to Pharmacy Electronically, [facility], 165, cm, 06/23/19 8:05:00 EST, [...] chart this admission(Confirmed) Active Suarez's esophagus(Confirmed) Active Conduction disorder of the heart(Confirmed) Active DVT - Deep vein thrombosis o f lower limb(Confirmed) Active Enlarged prostate(Confirmed) Active GERD (gastroesophageal reflu x disease)(Confirmed) Active HTN - Hypertension(Confirmed) Active Hypothyroidism(Confirmed) Active Elbow pain, right(Confirmed) Active Plantar fascial fibromatosis(Confirmed) Active Varicosities of leg, Bilateral(Confirmed) Active Vitiligo(Confirmed) Active Results Radiology Reports * Exam Date Time Procedure Performing Provider Status 12/23/19 2:30 PM Wrist Comp Min 3 Views Right Bogdan Loomis; Ymaile (Verified) Notes: (Wrist Comp Min 3 Views Right) Reason For Exam: Trauma RESULT: Wrist Comp Min 3 Views Right Wrist Comp Min 3 Views Right Reason: Playing softball, check alignment Drive to the right wrist. COMPARISON: None. FINDINGS: Severe first carpometacarpal osteoarthritis. No fracture or malalignment. Soft tissue swelling about the wrist. IMPRESSION: No acute fracture or malalignment. Severe first carpal metacarpal osteoarthritis. Soft tissue swelling about the wrist. WSN: [id number] Ordering Physician: Simone Avina Dictated By: Art Flores MD Dictated Date/Time: 12/23/19 2:34 pm Reviewed By: Art Flores MD Signed By: Art Flores MD Signed Date/Time: 12/23/19 2:34 pm Transcribed By: ONEL Transcribed Date/Time: 12/23/19 2:32 pm Vital Signs Most recent to oldest [Reference Range]: 1 Height 165 cm (12/23/19 1:07 PM) Weight 78.7 kg (12/23/19 1:07 PM) Oxygen Saturation [94-100 %] 100 % (12/23/19 1:07 PM) Pulse Rate [55-90 bpm] 89 bpm (12/23/19 1:07 PM) Blood Pressure [90-138/55-84 mm Hg] 136/ 98mm Hg (12/23/19 1:07 PM) Respiratory Rate [16-30 br/min] 16 br/mi n (12/23/19 1:07 PM) Temperature [96.8-100.4 DegF] 98.5 DegF (12/23/19 1:07 PM) Mode of Delivery (Oxygen) Room air (12/23/19 1:07 PM) Dry Weight 78.7 kg (12/23/19 1:07 PM) Weight Obtained Via Standing scale (12/23/19 1:07 PM) Dry Weight Obtained Via Standing scale (12/23/19 1:07 PM) Social History Social History Type Response Smoking Status Former smoker, quit more than 30 days ago; Tobacco user in household: No; Other: quit in the 80s; entered on: 12/21/18 Sex
--- OUTSIDE RECORDS SUMMARY | 2023-10-25 00:18 | XMS_ITS | Continuity of Care Document ---
Author Organization [facility] Address [address] [place] [address]- Care Team Providers Care Padder Cushion Name Role Phone Hermes Joy MD Primary Care Physician Encounter [facility] Date(s): 08/26/22 - [email or web address] [address] [place] [address]- [place] Encounter Diagnosis Medicare annual wellness visit, subsequent(Discharge Diagnosis) - 08/26/22 HTN - Hypertension(Discharge Diagnosis) - 08/26/22 Hypothyroidism(Discharge Diagnosis) - 08/26/22 Chronic kidney disease(Discharge Diagnosis) - 08/26/22 Attending Physician: Hermes Joy MD Allergies, Adverse [...] 08/26/22 8:33:00 EST, Route to Pharmacy Electronically, [facility] [...] Effective Dates Health Status Clinical Service Informant Medicare annual wellness visit, subsequent Discharge Diagnosis 08/26/22 HTN - Hypertension Discharge Diagnosis 08/26/22 Hypothyroidism Discharge Diagnosis 08/26/22 Chronic kidney disease Discharge Diagnosis 08/26/22 Vital Signs Most recent to oldest [Reference Range]: 1 2 3 Height 165 cm (08/26/22 7:57 AM) 165 cm (08/26/22 7:57 AM) 165 cm (08/26/22 7:20 AM) Weight 80.9 kg (08/26/22 7:17 AM) Oxygen Saturation [94-100 %] 98 % (2/21/23 7:17 AM) Pulse Rate [55-90 bpm] 64 bpm (08/26/22 7:17 AM) Body Mass Index [18.5-24.99 kg/m2] 29.72 kg/m2 *H* (08/26/22 7:17 AM) Blood Pressure [90-138/55-84 mm Hg] 110/70mm Hg (08/26/22 7:57 AM) 130/80mm Hg (08/26/22 7:57 AM) 152/88mm Hg *H* (08/26/22 7:20 AM) Respiratory Rate [16-30 br/min] 18 br/min (08/26/22 7:17 AM) Blood pressure sites Arm, left (08/26/22 7:57 AM) Arm, right (08/26/22 7:57 AM) Arm, right (08/26/22 7:20 AM) Social History Social History Type Response Smoking Status Former smoker, quit more than 30 days ago; Tobacco user in household: No; Other: quit in the 80s; entered on: 12/21/18 Sex Note * Rosa Isela Holley: PERFORM, SIGN, VERIFY Event Display: Patient Education/Instruction Authored Date: [id number] [facility] *BRENDA Quab Adlt Med Bltn Clinical Summary Name VERONICA MCKNIGHT Age 77 Years 1945 PCP Hermes Joy MD PCP Visit Date 08/26/2022 07:13:00 Additional Instructions: Scheduled Appointments?? Future Appointments ?No Future Appointments Scheduled Follow-Up Instructions ?? Diagnosis Essential (primary) hypertension; Encounter for general adult medical examination without abnormal findings; Hypothyroidism, unspecified; Chronic kidney disease, unspecified Medications: Please continue your medications until treatment [...] orders Vital Signs Height 165 cm Weight 80.9 kg BMI 29.72 kg/m2 Blood Pressure 130 mm Hg/80 mm Hg Temperature Pulse Rate 64 bpm Respiratory Rate 18 br/min 02 Sat Mode of Delivery 98 %/ You can now view a summary of your hospital visit from the comfort of your home through a free online portal called [employer]. [employer] is a website that allows you to securely view your medical information including discharge summary, medications and follow-up visits. ??You can alsosend a secure electronic message to your doctor???s office to request appointments, renew medications or just ask a question. You can enroll at [email or web address] or register during your next office visit. [...] primary care provider, you may find a [facility] provider by calling [facility] [employer] at [phone]. For information about the plan of care including goals and instructions for your diagnosis, please see the patient education orders section of this document. Patient Education Materials?? The content of this educational material or handout may have been modified, supplemented, or adapted from its original content and format to support your individualized medical care. Coping with Kidney Failure Having kidney failure means many changes in your health and life. It may feel like too much to copewith at times, but you can learn how to deal with these emotions and feel better about your treatment and yourself. Learning as much as you can about kidney failure is a good place to start.??Kidney failure is also called chronic kidney disease. It has 5 stages, from mild to severe, based on whether your kidneys are leaking protein and how well they are filtering your blood. Talking to someone you feel close to may help when you're feeling down. Understanding your emotions Living with a medical condition like kidney failure can be very stressful. It is common at times tofeel: ??? Angry and frustrated over having to depend on others. ??? Confused about all the instructions you've been given. ??? Worried about things going wrong with your treatment. ??? Upset with side effects of kidney failure or the treatment for it. ??? Hopeless and depressed about your future. ??? Unhappy with your body. Don't keep these feelings to yourself. Talk to your health care team and your loved ones. They may know ways to help. Accepting your body's changes Kidney failure and its treatment cause changes in your body. These changes can affect the way you feel about your sexuality. Your desire for and feelings about sex may change. Be open with your partner about your feelings and talk to your health care providers. They can help you understand your body's changes. Finding support People sometimes find it hard to ask others for help. But it's also hard to face a chronic illness alone. When you need some help or just want to talk, turn to friends, family, and members of your health care team. Also consider joining a support group. In a support group, people meet to talk aboutcommon problems.?? Ask your health care provider if there is a kidney failure support group nearby. Resources These organizations can give you more information on kidney failure. They may also guide you to local resources, such as support groups. ??? [place] [employer] Kidney Patients?? 877.451.7158?? www.aakp.org ??? [employer] [employer]?? 428.590.4845?? www.akfinc.org ??? National Kidney Foundation?? 467.608.1220?? www.kidney.org ??? National Kidney Disease Education Program 096-3-HPYFXW (929-797-4487) www.nkdep.nih.gov ?? [employer]. [address] [place] [address], [place] [address]. All rights reserved. This information is not intended as a substitute for professional medical care. Always follow your healthcare professional's instructions. Controlling Your Cholesterol Cholesterol is a waxy [...] might benefit froma cholesterol- lowering medication. ?? 4032-[address] [employer] [place] [address]. All rights reserved. This information is not [...] walk or bike instead of driving. ??? Emily leaves, garden, or do household repairs. ??? [...] provider before stopping or changing them. ?? 3417-4643 [employer]. [address] [place] [address]. All rights reserved. This information is not intended as a substitute for professional medical care. Always follow your healthcare professional's instructions. Prevention Guidelines, Men Ages 65 and Older Screening tests and vaccines are an important part of managing your health. Health counseling is essential, too. Below are guidelines for these, for men ages 65 and older. Talk with your healthcare provider to make sure you???re up-to-date on what you need. Screening Who needs it How often Abdominal aortic aneurysm Men ages 65 to 75 who have ever smoked 1 ultrasound Alcohol misuse All men in this age group At routine exams Blood pressure All men in this age group Every 2 years if your blood pressure is less than 120/80 mm Hg; yearly if your systolic blood pressure is 120 to 139 mm Hg, or your diastolic blood pressure reading is 80 to 89 mm Hg Colorectal cancer All men in this age group Flexible sigmoidoscopy every 5 years, or colonoscopy every 10 years, or double- contrast barium enema every 5 years; yearly fecal occult blood test or fecal immunochemical test; or a stool DNA test asoften as your healthcare provider advises; talk with your healthcare provider about which tests arebest for you Depression All men in this age group At routine exams Type 2 diabetes or prediabetes All adults beginning at age 45 and adults without symptoms at any age who are overweight or obese and have 1 or more other risk factors for diabetes At least every 3 years Hepatitis C Men at increased risk for infection ??? talk with your healthcare provider At routine exams High cholesterol or triglycerides All men in this age group At least every 5 years HIV Men at increased risk for infection ??? talk with your healthcare provider At routine exams Lung cancer Adults ages 55 to 80 who have smoked Yearly screening in smokers with 30 pack-year history of smoking or who quit within 15 years Obesity All men in this age group At routine exams Prostate cancer All men in this age group, talk to healthcare provider about risks and benefits of digital rectal exam (JITENDRA) and prostate-specific antigen (PSA) screening1 At routine exams Syphilis Men at increased risk for infection ??? talk with your healthcare provider At routine exams Tuberculosis Men at increased risk for infection ??? talk with your healthcare provider Ask your healthcare provider Vision All men in this age group Every 1 to 2 years; if you have a chronic health condition, ask your healthcare provider if you needs exams more often Vaccine Who needs it How often Chickenpox (varicella) All men in this age group who have no record of this infection or vaccine 2 doses; second dose should be given at least 4 weeks after the first dose Hepatitis A Men at increased risk for infection ??? talk with your healthcare provider 2 doses given at least 6 months apart Hepatitis B Men at increased risk for infection ??? talk with your healthcare provider 3 doses over 6 months; second dose should be given 1 month after the first dose; the third dose should be given at least 2 months after the second dose and at least 4 months after the first dose Haemophilus influenzae Type B (HIB) Men at increased risk for infection ??? talk with your healthcare provider 1 to 3 doses Influenza (flu) All men in this age group Once a year Meningococcal Men at increased risk for infection ??? talk with your healthcare provider 1 or more doses Pneumococcal??conjugate vaccine (PCV13)??and pneumococcal polysaccharide??vaccine (PPSV23) All men in this age group 1 dose of each vaccine Tetanus/diphtheria/ pertussis (Td/Tdap) booster All men in this age group Td every 10 years, or Tdap if you will have contact with a child younger than 12 months old Zoster All men in this age group 1 dose Counseling Who needs it How often Diet and exercise Men??who are overweight or obese When diagnosed, and then at routine exams Fall prevention (exercise, vitamin D supplements) All men in this age group At routine exams Sexually transmitted infection Men at increased risk for infection ??? talk with your healthcare provider At routine exams Use of daily aspirin Men ages 45 to 79 at risk for cardiovascular health problems At routine exams Use of tobacco and the health affects it can cause All men in this age group Every visit [address] [place] [address] [facility] Network ?? [phone] [employer]. [address] [place] [address]. All rights reserved. This information is not [...] may be worthwhile to talk with an city attorney. Writing down your wishes ??? An advance directive is important whether you???re young or old. Injury or illness can strike at any age. ??? Decide what is important to you and the kind of treatment you???d want, or not want to have. ??? Some states allow only one kind of advance directive. Some let you do both a Durable Power of Clinical Admissions Manager for Health Care and a Living Will. Some states put both kinds on the same form. A Durable Power of Clinical Admissions Manager for Health Care ??? This form lets [...] no longer express your wishes yourself. ?? 0277-[address] [employer]. [address] [place] [address]. All rights reserved. This information is not intended as a substitute for professional medical care. Always follow your healthcare professional's instructions. Adult Immunization Schedule Vaccine How Often Disease Prevented Who Needs It Influenza Every year Flu. This can be especially dangerous to elderly adults or people with immune disorders. All adults. Tetanus, diphtheria (Td); or Tetanus, diphtheria, and pertussis (Tdap)* One dose of Tdap, then one dose of Td as a booster every 10 years Tetanus??(lockjaw), a disease that causes muscles to spasm Diphtheria,??an infection that causes fever, weakness, and breathing problems Pertussis, also known as whooping cough. This is a highly contagious disease that can cause serious illness. All adults *This vaccine should be given during each no matter how many years since the last vaccine. The vaccine increases protection for??your . A is too young to get the vaccine, but at the highest risk for severe illness and from pertussis. Varicella (Vaibhav) One series of 2 injections Chickenpox. This is a disease that causes itchy skin bumps, fever, and tiredness. It can lead to scarring, pneumonia, or brain inflammation. Adults who don???t have evidence of immunity This vaccine should not be given to women. Women should avoid for??4 weeks after the vaccine. Human papillomavirus (HPV) One??series of 3 injections Cervical cancer, caused by certain types of HPV Vaginal and vulvar cancer Penile cancer Head and neck cancers Anal cancer Genital warts Females and males??ages 26 and younger. Minimum age is 9 years. (Ask your healthcare provider if this vaccine is right for you.) Zoster 1 dose Herpes zoster (shingles), a painful rash marked by blisters Adults ages 60 and older. You should not get this vaccine if your immune system??is low. For example, if you have HIV, are taking medicines that suppress??your immune system, or??are getting cancer treatment. Measles, mumps, rubella (MMR) 1 or 2 doses, for ages 19 through 49; 1 dose for ages 50 and older if at risk Measles,??a disease marked by red spots, fever, and coughing Mumps,??a disease that causes swellingin the salivary glands. It may affect the ovaries or testes. Rubella??(English measles). This is a form of measles that can cause defects if a woman catches it. Adults born in 1957 or later who are not known to be immune to all 3 of these diseases. Ask your healthcare provider if you need a second dose. This vaccine should not??be given to ??women.Women should??avoid for??4??weeks after vaccination. Pneumococcal (PCV 13) 1 dose Pneumonia. This is an infection that causes inflammation in??your lungs. It can lead to . Adults ages 65 and older. Also, adults ages 19 and older with weak immune systems or any of these health conditions:??chronic renal failure, nephrotic syndrome, or both. Or functional or anatomic asplenia, cerebrospinal fluid (CSF)??leaks, or cochlear implants. Pneumococcal (PPSV23) ??1 or 2 doses Pneumonia.. This is an infection that causes inflammation in your lungs. It can lead to . Adults ages 65 and older. Also, adults with chronic illnesses, such as asthma, COPD, heart disease,diabetes, liver disease, alcoholism, sickle cell disease, or history of splenectomy. In addition, adults with an immune disorder and adults who smoke cigarettes. Meningococcal (MCV or MPSV) 1 or more doses Meningococcal disease (bacterial meningitis). This is inflammation of the membrane covering the brain and spinal cord. It can lead to . Adults with immune deficiencies or high risk of exposure. Also, college freshmen living in dormitories and recruits. Hepatitis A (HepA) One series of 2 injections Hepatitis A. This is an infection that can result in acute liver inflammation and yellow skin and whites of the eyes (jaundice). Adults with risk factors, such as clotting disorders or chronic liver disease, and adults with highrisk of exposure Hepatitis B (HepB) One series of 3 injections Hepatitis B. This is an infection that causes chronic, severe liver disease. Adults with high risk of exposure, such as healthcare providers and sanitation workers, and adults with diabetes Travelers??? diseases As needed Infections such as cholera, typhoid, yellow fever, polio, rabies, meningococcal disease, hepatitis A, hepatitis B Adults traveling out of the country. Required vaccines will vary, depending on the country you visit. Check CDC website: www.cdc.gov. ??, Based on the CDC National Immunization Program recommendations for adults. ?? 6028-1693 [employer]. [address] [place] [address], [place] [id number]. All rights reserved. This information is not intended as a substitute for professional medical care. Always follow your healthcare professional's instructions. Patient Care team information Care Team Personnel Name: Zoraida Morris RN Position: [facility] QUALITY ASSURANCE MANAGER No Tools Member Role: Primary Care Nurse Name: Hermes Joy MD Position: [facility] Primary Care Physician Member Role: PCP Address: Address: [address] [place] [address]- Care Team Related Persons Name: MAGALI SORENSEN Address: [address] [address] Name: NILAY CLARK
--- OUTSIDE RECORDS SUMMARY | 2023-10-25 00:18 | XMS_ITS | Continuity of Care Document ---
Author Organization [facility] Address [address] [place] [address]- Care Team Providers Care Transfer And Pumphouse Operator Name Role Phone Hermes Joy MD Primary Care Physician Encounter [facility] NBR [id number] Date(s): 10/21/21 - [facility] [address] [place] [address]- [place] Allergies, Adverse Reactions, Alerts Substance Reaction [...] 1 Refills, Maintenance, 09/04/21 11:07:00 EST, Tablet, [facility], Partial fill upon patient request if the prescription is for a schedule II opioid drug., 165, cm, 06/13/21 11:19:00 EST, Hei... Start Date: 09/04/21 Status: Ordered lovastatin 20 mg oral tablet 1 tablet = 20 mg, By Mouth, Daily, # 90 tablet, 3 Refills, Soft Stop, 08/22/21 9:12:00 EST, [facility], 165, cm, 06/13/21 11:19:00 EST, [...] 08/22/21 9:11:00 EST, Route to Pharmacy Electronically, [facility], 165, cm, 06/13/21 11:19:00 EST, Height, 78.7, kg, 12/23/19 13:07:00 EDT, Dry Weight Start Date: 08/22/21 Status: Ordered omeprazole 20 mg oral enteric coated capsule 1 capsule = 20 mg, By Mouth, Daily, # 90 capsule, 3 Refills, Maintenance, 08/22/21 9:11:00 EST, EC Capsule, [facility], 165, cm, 06/13/21 11:19:00 EST, Height, 78.7, kg, 12/23/19 13:07:00 EDT, Dry Weight Start Date: 08/22/21 Status: Ordered One-A-Day Men Pro Edge 1 tablet, By Mouth, Daily, 0 Refills, Maintenance, 08/07/16 9:45:51 Start Date: 08/07/16 Status: Ordered Paxlovid 150 mg-100 mg oral tablet 1 tablet, By Mouth, 2 times a day, # 10 tablet, 0 Refills, Maintenance, 10/18/21 16:13:00 EDT, [facility] #1230, Partial fill upon patient request if [...]
--- OUTSIDE RECORDS SUMMARY | 2023-10-25 00:18 | XMS_ITS | Continuity of Care Document ---
Author Organization [facility] [place] [facility] Address [address] [place] [address]- Care Team Providers Care Rice Cleaning Machine Tender Name Role Phone Hermes Joy MD Primary Care Physician [phone] Encounter [facility] NBR [id number] Date(s): 10/21/21 - [facility] [address] [place] [address]- [place] Allergies, Adverse Reactions, Alerts Substance Reaction [...] 1 Refills, Maintenance, 09/04/21 11:07:00 EST, Tablet, [facility] 08[facility], Partial fill upon patient request if the prescription is for a schedule II opioid drug., 165, cm, 06/13/21 11:19:00 EST, Hei... Start Date: 09/04/21 Status: Ordered lovastatin 20 mg oral tablet 1 tablet = 20 mg, By Mouth, Daily, # 90 tablet, 3 Refills, Soft Stop, 08/22/21 9:12:00 EST, [facility], 165, cm, 06/13/21 11:19:00 EST, [...] 08/22/21 9:11:00 EST, Route to Pharmacy Electronically, [facility], 165, cm, 06/13/21 11:19:00 EST, Height, 78.7, kg, 12/23/19 13:07:00 EDT, Dry Weight Start Date: 08/22/21 Status: Ordered omeprazole 20 mg oral enteric coated capsule 1 capsule = 20 mg, By Mouth, Daily, # 90 capsule, 3 Refills, Maintenance, 08/22/21 9:11:00 EST, EC Capsule, [facility], 165, cm, 06/13/21 11:19:00 EST, Height, 78.7, kg, 12/23/19 13:07:00 EDT, Dry Weight Start Date: 08/22/21 Status: Ordered One-A-Day Men Pro Edge 1 tablet, By Mouth, Daily, 0 Refills, Maintenance, 08/07/16 9:45:51 Start Date: 08/07/16 Status: Ordered Paxlovid 150 mg-100 mg oral tablet 1 tablet, By Mouth, 2 times a day, # 10 tablet, 0 Refills, Maintenance, 10/18/21 16:13:00 EDT, [facility]/pharmacy #1230, Partial fill upon patient request if [...]
--- OUTSIDE RECORDS SUMMARY | 2023-10-25 00:18 | XMS_ITS | Continuity of Care Document ---
Author Organization [facility] Address [address] [place] [address]- Care Team Providers Care Software Computer Specialist Name Role Phone Hermes Joy MD Primary Care Physician [phone] Encounter [facility] Date(s): 06/15/23 - 07/15/23 [facility] [address] [place] [address]- [place] Allergies, Adverse Reactions, Alerts Substance Reaction [...] Daily, # 90 tablet, 0 Refills, Maintenance, 06/15/23 8:40:00 EST, Tablet, [facility], Partial fill upon patient request if the prescription is for a schedule II opioid drug., 165, cm, 04/27/23 9:13:00 EDT, H... Start Date: 06/15/23 Status: Ordered lovastatin 20 mg oral tablet 1 tablet = 20 mg, By Mouth, Daily, # 90 tablet, 1 Refills, Soft Stop, 02/26/23 7:52:00 EDT, [facility], 165, cm, 02/26/23 7:30:00 [...] 02/23/23 9:30:00 EDT, Route to Pharmacy Electronically, [facility], 165, cm, 08/26/22 7:57:00 EST, Height, 81.3, kg, 01/25/22 14:12:00 EDT, Dry Weight Start Date: 02/23/23 Status: Ordered omeprazole 20 mg oral enteric coated capsule 1 capsule = 20 mg, By Mouth, Daily, # 90 capsule, 1 Refills, Maintenance, 02/26/23 7:52:00 EDT, EC Capsule, [facility], 165, cm, 02/26/23 7:30:00 [...] Team Personnel Name: Zoraida Morris RN Position: [facility] FAST FOOD ATTENDANT Member Role: Primary Care Nurse Name: Hermes Joy MD Position: [facility] Physician - Primary Care Member Role: PCP Address: Address: [address] [place] [address], [place], [place] [address] Name: Kristine House RN Position: [facility] Outreach Member Role: Primary Care Nurse Care Team Related Persons Name: MAGALI SORENSEN Address: home [address] [place] [id number] Name: NILAY CLARK
--- OUTSIDE RECORDS SUMMARY | 2023-10-25 00:18 | XMS_ITS | Continuity of Care Document ---
Author Organization [facility] Address [address] [place] [address]- Care Team Providers Care Building Superintendent Name Role Phone Hermes Joy MD Primary Care Physician En[facility] Date(s): 04/27/23 - [facility]04/[address] [facility] [address] [place] [address]- Encounter Diagnosis Hydradenitis(Discharge Diagnosis) - 04/27/23 Attending Physician: Milli CLINICAL SALES CONSULTANT, Janey Winkler Allergies, Adverse Reactions, Alerts Substance [...] Diagnosis Diagnosis Type Effective Dates Health Status inical Service Informant Hydradenitis Discharge Diagnosis 04/27/23 Vital Signs Most recent to oldest [Reference Range]: 1 2 Height 165 cm (04/27/23 9:13 AM) 165 cm (04/27/23 8:58 AM) Weight 80.7 kg (04/27/23 8:58 AM) Oxygen Saturation [94-100 %] 96 % (04/27/23 8:58 AM) Pulse Rate [55-90 bpm] 68 bpm (04/27/23 8:58 AM) Body Mass Index [18.5-24.99 kg/m2] 29.64 kg/m2 *H* (04/27/23 8:58 AM) Blood Pressure [90-138/55-84 mm Hg] 110/ 62mm Hg (04/27/23 9:13 AM) 140/80mm Hg *H* (04/27/23 8:58 AM) Respiratory Rate [16-30 br/min] 15 br/mi n *L* (04/27/23 8:58 AM) Temperature [96.8-100.4 DegF] 97.9 DegF (04/27/23 8:58 AM) Mode of Delivery (Oxygen) Room air (04/27/23 8:58 AM) Blood pressure sites Arm, right (04/27/23 9:13 AM) Arm, right (04/27/23 8:58 AM) Temperature Route Temporal (04/27/23 8:58 AM) Weight Obtained Via Standing scale (04/27/23 8:58 AM) Social History Social History Type Response Smoking Status Former smoker, quit more than 30 days ago; Tobacco user in household: No; Other: quit in the 80s; entered on: 12/21/18 Sex Note * Socorro Sifuentes: PERFORM, SIGN, VERIFY Event Display: Patient Education/Instruction Authored Date: [id number] [facility] *[facility] Adlt Med Bltn Clinical Summary Name VERONICA MCKNIGHT Age 78 Years 1945 PCP Hermes Joy MD PCP Visit Date 04/27/2023 08:54:00 Additional Instructions: Scheduled Appointments?? Future Appointments ?No Future Appointments Scheduled Follow-Up Instructions ?? Diagnosis Medications: Please continue your medications until treatment is completed or stopped by your provider. Discuss any questions related to medications with your provider. New Medications [facility], [address], [place] [id number], [phone] Cephalexin (cephalexin monohydrate 500 mg oral capsule) 1 capsule Oral every 12 hours for 7 Days. Refills: 0. Next Dose: [...] capsule Oral Daily. Refills: 1. Next Dose: Psyllium (Metamucil Powder) 1 pack/packet Oral Daily. Next Dose: Terazosin (terazosin 5 mg oral capsule) 1 capsule Oral Daily at Bedtime for 90 Days. Refills: 1. Next Dose: Vitamin E (vitamin E 400 iu oral capsule) 1 capsule Oral Daily. Next Dose: Allergy Info:?? Pollen; Dust Medications Given This Visit Future Orders ?No future orders Vital Signs Height 165 cm Weight 80.7 kg BMI 29.64 kg/m2 Blood Pressure 110 mm Hg/62 mm Hg Temperature 97.9 DegF Pulse Rate 68 bpm Respiratory Rate 15 br/min 02 Sat Mode of Delivery 96 %/Room air You can now view a summary of your hospital visit from the comfort of your home through a free online portal called [employer]ac[employer]. [employer] is a website that allows you to securely view your medical information including discharge summary, medications and follow-up visits. ??You can alsosend a secure electronic message to your doctor???s office to request appointments, renew medications or just ask a question. You can enroll at [email or web address] or register during your next office visit. [...] primary care provider, you may find a [facility] provider by calling [facility] [employer] Link at [phone]. [facility], in keeping with [facility] guidance, no longer requires face masks for staff, patientsor visitors in most situations. Similar to time spent indoors at other locations, there is the chance that you were exposed to respiratory viruses during your time with us (such as flu or COVID-19).? If you develop symptoms concerning for a viral respiratory infection, please seek testing (and treatment if indicated) from your medical provider or home test kit. For information about the plan of care including goals and instructions for your diagnosis, please see the patient education orders section of this document. Patient Education Materials?? The content of this educational material or handout may have been modified, supplemented, or adapted from its original content and format to support your individualized medical care. Hidradenitis Suppurativa (Abx Only) Hidradenitis suppurativa is chronic inflammation of the sweat glands. It is considered a severe form of acne. Firm, red, painful bumps called nodules form. These are filled with pus. They often enlarge and may break open and drain. Common affected areas are the armpit, groin, and anal area. You may have been given antibiotics and anti-inflammatory medications to help treat the flare-up. If nodules keep getting bigger, drainage may be needed. Surgically removing the glands is the most effective treatment in severe cases. Watch for the signs of early inflammation in the future (small, tender??lumps) and follow the treatment advice below. Home care The following guidelines will help you care for your inflammation at home: ??? If oral antibiotics were prescribed, take all of them as directed. ??? Make a warm compress by running hot water over a washcloth. Apply it to the area until the compress cools off. Repeat over a 15-minute period. Apply the hot compress 3 times a day for the first??3 days. Or, you can feed inspection supervisor the shower and direct the warm spray onto the area. ??? Wash the area with antibacterial soap. ??? Put on an [id number] antibiotic cream 3 to 4 times a day, unless another topical medicinewas prescribed. ??? Use ibuprofen to control pain and swelling, unless another pain medication was given. If you have kidney disease or ever had a stomach ulcer or GI bleeding, talk with your doctor before using this medication. ??? The lesions are not contagious. ??? Your condition is not caused by poor hygiene. Prevention The following can help you avoid this chronic inflammation: ??? Avoid heat and sweating as much as possible. ??? Wear loose clothing. ??? Avoid shaving the affected area. ??? Lose excess weight. ??? If you smoke, consider quitting. ??? Avoid antiperspirants and deodorants. Follow-up care Follow up with your health care provider if symptoms are not improving over the next 5 days, or as advised by our staff. When to seek medical care Get prompt medical attention if any of the following occur: ??? Increasing redness ??? Increasing pain ??? Fever over 100.4??F (38??C) for more than 2 days after??treatment, or as directed ??? Nodules keep getting bigger ?? 3503-5140 [employer]. [address] [place] [address], [place] [address]. All rights reserved. This information is not intended as a substitute for professional medical care. Always follow your healthcare professional's instructions. Patient Care team information Care Team Personnel Name: Zoraida Morris RN Position: [facility] EYE PHYSICIAN Member Role: Primary Care Nurse Name: Hermes Joy MD Position: [facility] Physician - Primary Care Member Role: PCP Address: Address: [address] [place] [id number] Name: Kristine House RN Position: [facility] Outreach Member Role: Primary Care Nurse Care Team Related Persons Name: MAGALI SORENSEN Address: [address] [address] Name: NILAY CLARK
--- OUTSIDE RECORDS SUMMARY | 2023-10-25 00:18 | XMS_ITS | Continuity of Care Document ---
Author Organization [facility] Address [address] [place] [address]- Care Team Providers Care Senior Marketing Data Analyst Name Role Phone Hermes Joy MD Primary Care Physician Encounter [facility] Date(s): 06/23/19 - 06/23/[address] [address]- [facility] Attending Physician: Hermes Joy MD Allergies, Adverse [...] 1 Refills, Maintenance, 06/23/19 8:20:00 EST, Tablet, [facility], Rx resent from 12/21/18., 165, cm, 06/23/19 [...] tablet, Refills 2, Tot. Refills 2, Maintenance, 06/23/19 8:20:00 EST, Route to Pharmacy Electronically, [facility] 2683, 165, cm, 06/23/19 8:05:00 EST, Height Start Date: 06/23/19 Status: Ordered omeprazole 20 mg oral enteric [...] Refills 2, Tot. Refills 2, Soft Stop, 06/23/19 8:21:00 EST, Route to Pharmacy Electronically, [facility] 268[facility], 165, cm, 06/23/19 8:05:00 EST, Height Start Date: 06/23/19 Stop Date: 03/19/20 Status: Ordered Vitamin B12 0 Refills, Maintenance, [...]
--- OUTSIDE RECORDS SUMMARY | 2023-10-25 00:18 | XMS_ITS | Continuity of Care Document ---
Author Organization [facility] Address [address] [place] [address]- Care Team Providers Care Multi Punch Operator Name Role Phone Hermes Joy MD Primary Care Physician Encounter [facility] Date(s): 10/10/20 - 11/09/20 [facility] [address] [place] [address]- Allergies, Adverse Reactions, Alerts Substance Reaction Severity [...] 1 Refills, Maintenance, 10/10/20 8:52:00 EDT, Tablet, [facility], Rx resent from 12/21/18., 165, cm, 12/23/19 13:07:00 EDT, Height, 78.7, kg, 12/23/19 13:07:00 EDT, Dry Weight Start Date: 10/10/20 Status: Ordered lovastatin 20 mg oral tablet 1 tablet = 20 mg, By Mouth, Daily, # 90 tablet, 1 Refills, Soft Stop, 07/18/20 11:21:00 EST, [facility], 165, cm, 12/23/19 13:07:00 EDT, [...] 06/04/20 8:17:00 EST, Route to Pharmacy Electronically, [facility], Rx resent from 06/23/19., 165, cm, 12/23/19 13:07:00 EDT, Height, 78.7, kg, 12/04... Start Date: 06/04/20 Status: Ordered omeprazole 20 mg oral enteric coated capsule 1 capsule = 20 mg, By Mouth, Daily, # 90 capsule, 1 Refills, Maintenance, 07/25/20 10:06:00 EST, ECCapsule, [facility], 165, cm, 12/23/19 13:07:00 EDT, [...]
--- OUTSIDE RECORDS SUMMARY | 2023-10-25 00:18 | XMS_ITS | Continuity of Care Document ---
Author Organization [facility] Address [address] [place] [address]- Care Team Providers Care Herbicide Sprayer Name Role Phone Hermes Joy MD Primary Care Physician Encounter [facility] Date(s): 08/22/21 - 08/29/21 [facility] [address] [place] [address]- [place] Encounter Diagnosis Medicare annual wellness visit, subsequent(Discharge Diagnosis) - 08/22/21 Attending Physician: Hermes Joy MD Allergies, Adverse [...] Daily, # 90 tablet, 1 Refills, Maintenance, 08/22/21 9:12:00 EST, Tablet, [facility], Partial fill upon patient request if the prescription is for a schedule II opioid drug., 165, cm, 06/13/21 11:19:00 EST,... Start Date: 08/22/21 Status: Ordered lovastatin 20 mg oral tablet 1 tablet = 20 mg, By Mouth, Daily, # 90 tablet, 3 Refills, Soft Stop, 08/22/21 9:12:00 EST, [facility], 165, cm, 06/13/21 11:19:00 [...] 08/22/21 9:11:00 EST, Route to Pharmacy Electronically, [facility], 165, cm, 06/13/21 11:19:00 EST, Height, 78.7, kg, 12/23/19 13:07:00 EDT, Dry Weight Start Date: 08/22/21 Status: Ordered omeprazole 20 mg oral enteric coated capsule 1 capsule = 20 mg, By Mouth, Daily, # 90 capsule, 3 Refills, Maintenance, 08/22/21 9:11:00 EST, EC Capsule, [facility], 165, cm, 06/13/21 11:19:00 EST, [...] Medicare annual wellness visit, subsequent Discharge Diagnosis 08/22/21 Social History Social History Type Response Smoking Status Former smoker, quit more than 30 days ago; Tobacco user in household: No; Other: quit in the 80s; entered on: 12/21/18 Sex
--- OUTSIDE RECORDS SUMMARY | 2023-10-25 00:18 | XMS_ITS | Continuity of Care Document ---
Author Organization [facility] Address [address] [place] [address]- Care Team Providers Care Power Digger Operator Name Role Phone Hermes Joy MD Primary Care Physician [phone] Encounter [facility] Date(s): 04/21/23 - 05/21/23 [facility] [address] [place] [address]- [place] Allergies, Adverse Reactions, Alerts Substance Reaction [...] 1 Refills, Maintenance, 02/26/23 7:52:00 EDT, Tablet, [facility], Partial fill upon patient request if the prescription is for a schedule II opioid drug., 165, cm, 02/26/23 7:30:00 EDT, H... Start Date: 02/26/23 Status: Ordered lovastatin 20 mg oral tablet 1 tablet = 20 mg, By Mouth, Daily, # 90 tablet, 1 Refills, Soft Stop, 02/26/23 7:52:00 EDT, [facility], 165, cm, 02/26/23 7:30:00 [...] 02/23/23 9:30:00 EDT, Route to Pharmacy Electronically, [facility], 165, cm, 08/26/22 7:57:00 EST, Height, 81.3, kg, 01/25/22 14:12:00 EDT, Dry Weight Start Date: 02/23/23 Status: Ordered omeprazole 20 mg oral enteric coated capsule 1 capsule = 20 mg, By Mouth, Daily, # 90 capsule, 1 Refills, Maintenance, 02/26/23 7:52:00 EDT, EC Capsule, [facility], 165, cm, 02/26/23 7:30:00 [...] Zoraida Morris RN Position: [facility] HUMIDIFIER OPERATOR Member Role: Primary Care Nurse Name: Hermes Joy MD Position: [facility] Physician - Primary Care Member Role: PCP Address: Address: [address] [place] [address], [place], [place] [address] Name: Kristine House RN Position: [facility] Outreach Member Role: Primary Care Nurse Care Team Related Persons Name: MAGALI SORENSEN Address: home [address] [place] [id number] Name: NILAY CLARK
--- OUTSIDE RECORDS SUMMARY | 2023-10-25 00:18 | XMS_ITS | Continuity of Care Document ---
Author Organization [facility] [place] Address [address] [place] [address]- Care Team Providers Care Tread Cutter Name Role Phone Hermes Joy MD Primary Care Physician [phone] Encounter [facility] Date(s): 08/16/21 - 09/15/21 [facility] [place] [address] [place], [place] [address] Attending Physician: Admtr, Jennifer Admitting Physician: AdmtrJennifer Referring Physician: Admtr, Ar8 Allergies, Adverse Reactions, Alerts Substance Reaction Severity [...] 1 Refills, Maintenance, 09/04/21 11:07:00 EST, Tablet, [facility] 2683, Partial fill upon patient [...] EST, Route to Pharmacy Electronically, [facility], 165, cm, 06/13/21 11:19:00 EST, Height, 78.7, kg, 12/23/19 13:07:00 EDT, Dry Weight Start Date: 08/22/21 Status: Ordered omeprazole 20 mg oral enteric coated capsule 1 capsule = 20 mg, By Mouth, Daily, # 90 capsule, 3 Refills, Maintenance, 08/22/21 9:11:00 EST, EC Capsule, [facility], 165, cm, 06/13/21 11:19:00 EST, [...]
--- OUTSIDE RECORDS SUMMARY | 2023-10-25 00:18 | XMS_ITS | Continuity of Care Document ---
Author Organization [facility] Address [address] [place] [address]- Care Team Providers Care Personnel Coordinator Name Role Phone Hermes Joy MD Primary Care Physician [phone] Encounter [facility] Date(s): 07/19/21 - 08/18/21 [facility] [address] [place] [address]- Allergies, Adverse Reactions, Alerts Substance Reaction Severity [...] 0 Refills, Maintenance, 06/07/21 10:47:00 EST, Tablet, [facility] 7[facility], Partial fill upon patient request if the [...] EST, Route to Pharmacy Electronically, [facility], 165, cm, 11/20/20 9:45:00 EDT, [...]
--- OUTSIDE RECORDS SUMMARY | 2023-10-25 00:18 | XMS_ITS | Continuity of Care Document ---
Author Organization [facility] Address [address] [place] [address]- Care Team Providers Care Optical Advisor Name Role Phone Hermes Joy MD Primary Care Physician Encounter [facility] Date(s): 01/17/20 - 02/16/20 [facility] [address] [place] [address]- Allergies, Adverse Reactions, Alerts Substance Reaction Severity [...] Daily, # 90 tablet, 0 Refills, Maintenance, 12/26/19 7:46:00 EDT, Tablet, [facility] 7[facility], Rx resent from 12/21/18., 165, cm, 12/23/19 13:07:00 EDT, Height, 78.7, kg, 12/23/19 13:07:00 EDT, Dry Weight Start Date: 12/26/19 Status: Ordered lovastatin 20 mg oral tablet [...] 09/06/19 8:29:00 EST, Route to Pharmacy Electronically, [facility] 268[facility], Rx resent from 06/23/19., 165, cm, 06/23/19 8:05:00 EST, Height Start Date: 09/06/19 Status: Ordered omeprazole 20 mg oral enteric coated capsule 1 capsule = 20 mg, By Mouth, Daily, # 90 capsule, 0 Refills, Maintenance, 01/17/20 16:45:00 EDT, [facility], 165, cm, 12/23/19 13:07:00 EDT, Height, 78.7, kg, 12/23/19 13:07:00 EDT, Dry Weight Start Date: 01/17/20 Status: Ordered One-A-Day Men Pro Edge 1 tablet, By Mouth, Daily, 0 Refills, Maintenance, 08/07/16 9:45:51 Start Date: 08/07/16 Status: Ordered terazosin 5 mg oral capsule 5 mg, 1, capsule, By Mouth, Daily at bedtime, # 90 capsule, Refills 2, Tot. Refills 2, Soft Stop, 11/23/19 12:02:00 EDT, Route to Pharmacy Electronically, [facility] 268[facility], 165, cm, 06/23/19 8:05:00 [...]
--- OUTSIDE RECORDS SUMMARY | 2023-10-25 00:18 | XMS_ITS | Continuity of Care Document ---
Author Organization [facility] Address [address] [place] [address]- Care Team Providers Care Machine Rough Rounder Name Role Phone Hermes Joy MD Primary Care Physician [phone] Encounter [facility] Date(s): 09/14/23 - 10/14/[facility] [address] [place] [address]- [place] Allergies, Adverse Reactions, Alerts Substance Reaction [...] Daily, # 90 tablet, 1 Refills, Maintenance, 03/11/24 8:28:00 EDT, Tablet, [facility], Partial fill upon patient request if the prescription is for a schedule II opioid drug., 165, cm, 04/27/23 9:13:00 EDT, H... Start Date: 09/14/23 Status: Ordered lovastatin 20 mg oral tablet 1 tablet = 20 mg, By Mouth, Daily, # 90 tablet, 1 Refills, Soft Stop, 02/26/23 7:52:00 EDT, [facility], 165, cm, 02/26/23 7:30:00 EDT, [...] 08/26/23 8:27:00 EST, Route to Pharmacy Electronically, [facility], 165, cm, 04/27/23 9:13:00 EDT, Height, 81.3, kg, 01/25/22 14:12:00 EDT, Dry Weight Start Date: 08/26/23 Status: Ordered omeprazole 20 mg oral enteric coated capsule 1 capsule = 20 mg, By Mouth, Daily, # 90 capsule, 1 Refills, Maintenance, 02/26/23 7:52:00 EDT, EC Capsule, [facility], 165, cm, 02/26/23 [...] Team Personnel Name: Zoraida Morris RN Position: [facility] STONE CHIMNEY MASON Member Role: Primary Care Nurse Name: Julia Burns RN Position: [facility] AMB Nurse Member Role: Primary Care Nurse Name: Hermes Joy MD Position: [facility] Physician - Primary Care Member Role: PCP Address: Address: [address] [place] [id number] Name: Kristine House RN Position: [facility] Outreach Member Role: Primary Care Nurse Care Team Related Persons Name: MAGALI SORENSEN Address: [address] [address] Name: NILAY CLARK
--- OUTSIDE RECORDS SUMMARY | 2023-10-25 00:18 | XMS_ITS | Continuity of Care Document ---
Author Organization [facility] Address [address] [place] [address]- Care Team Providers Care Green Chain Operator Name Role Phone Hermes Joy MD Primary Care Physician En[facility] Date(s): 12/26/19 - 01/02/20 [facility] [address] [place] [address]- [facility] Encounter Diagnosis HTN - Hypertension(Discharge Diagnosis) - 12/26/19 HLD (hyperlipidemia)(Discharge Diagnosis) - 12/26/19 Suarez's esophagus(Discharge Diagnosis) - 12/26/19 CKD (chronic kidney disease)(Discharge Diagnosis) - 12/26/19 Hypothyroidism(Discharge Diagnosis) - 12/26/19 Attending Physician: Hermes Joy MD Allergies, Adverse [...] 0 Refills, Maintenance, 12/26/19 7:46:00 EDT, Tablet, [facility], Rx resent from 12/21/18., [...] 09/06/19 8:29:00 EST, Route to Pharmacy Electronically, [facility], Rx resent from 06/23/19., 165, [...] 11/23/19 12:02:00 EDT, Route to Pharmacy Electronically, [facility], 165, cm, 06/23/19 8:05:00 [...] Service Informant HTN - Hypertension Discharge Diagnosis 12/26/19 HLD (hyperlipidemia) Discharge Diagnosis 12/26/19 Suarez's esophagus Discharge Diagnosis 12/26/19 CKD (chronic kidney disease) Discharge Diagnosis 12/26/19 Hypothyroidism Discharge Diagnosis 12/26/19 Social History Social History Type Response Smoking Status Former smoker, quit more than 30 days ago; Tobacco user in household: No; Other: quit in the 80s; entered on: 12/21/18 Sex
--- OUTSIDE RECORDS SUMMARY | 2023-10-25 00:18 | XMS_ITS | Continuity of Care Document ---
Author Organization [facility] Address [address] [place] [address]- Care Team Providers Care Insurance Sales Professional Name Role Phone Hermes Joy MD Primary Care Physician Encounter [facility] Date(s): 08/19/22 - 09/18/22 [facility] [address] [place] [address]- [place] Allergies, Adverse Reactions, Alerts Substance Reaction [...] 1 Refills, Maintenance, 06/17/22 16:36:00 EST, Tablet, [facility], Partial fill upon patient request if the prescription is for a schedule II opioid drug., 165, cm, 06/16/22 9:04:00 EST,... Start Date: 06/17/22 Status: Ordered lovastatin 20 mg oral tablet 1 tablet = 20 mg, By Mouth, Daily, # 90 tablet, 3 Refills, Soft Stop, 08/22/21 9:12:00 EST, [facility], 165, cm, 06/13/21 11:19:00 [...] 08/26/22 8:33:00 EST, Route to Pharmacy Electronically, [facility], 165, cm, 08/26/22 7:57:00 EST, Height, 81.3, kg, 01/25/22 14:12:00 EDT, Dry Weight Start Date: 08/26/22 Status: Ordered omeprazole 20 mg oral enteric coated capsule 1 capsule = 20 mg, By Mouth, Daily, # 90 capsule, 3 Refills, Maintenance, 08/22/21 9:11:00 EST, EC Capsule, [facility], 165, cm, 06/13/21 11:19:00 [...] Team Personnel Name: Zoraida Morris RN Position: [facility] OINTMENT MILL TENDER No Tools Member Role: Primary Care Nurse Name: Hermes Joy MD Position: [facility] Primary Care Physician Member Role: PCP Address: Address: [address] [place] [address], [place] [address]- Care Team Related Persons Name: MAGALI SORENSEN Address: home [address] [place] [id number] Name: NILAY CLARK
--- OUTSIDE RECORDS SUMMARY | 2023-10-25 00:18 | XMS_ITS | Continuity of Care Document ---
Author Organization [facility] Address [address] [place] [address]- Care Team Providers Care Mushroom Growth Media Mixer Name Role Phone Hermes Joy MD Primary Care Physician [phone] Encounter [facility] Date(s): 02/18/22 - 02/25/22 [facility] [address] [place] [address]- Encounter Diagnosis HTN - Hypertension(Discharge Diagnosis) - 02/18/22 CKD (chronic kidney disease)(Discharge Diagnosis) - 02/18/22 Hypothyroidism(Discharge Diagnosis) - 02/18/22 DVT - Deep vein thrombosis of lower limb(Discharge Diagnosis) - 02/18/22 Suarez's esophagus(Discharge Diagnosis) - 02/18/22 Attending Physician: Hermes Joy MD Allergies, Adverse [...] 09/04/21 11:07:00 EST, Tablet, [facility], Partial fill upon patient [...] EST, Route to Pharmacy Electronically, [facility], 165, cm, 06/13/21 11:19:00 EST, [...] Service Informant HTN - Hypertension Discharge Diagnosis 02/18/22 CKD (chronic kidney disease) Discharge Diagnosis 02/18/22 Suarez's esophagus Discharge Diagnosis 02/18/22 DVT - Deep vein thrombosis of lower limb Discharge Diagnosis 02/18/22 Hypothyroidism Discharge Diagnosis 02/18/22 Vital Signs Most recent to oldest [Reference Range]: 1 Height 165 cm (02/18/22 7:56 AM) Weight 80.1 kg (02/18/22 7:56 AM) Oxygen Saturation [94-100 %] 96 % (02/18/22 7:56 AM) Pulse Rate [55-90 bpm] 58 bpm (02/18/22 7:56 AM) Body Mass Index [18.5-24.99] 29.42 *H* (02/18/22 7:56 AM) Blood Pressure [90-138/55-84 mm Hg] 126/ 80mm Hg (02/18/22 7:56 AM) Liters per Minute 0 L/min (02/18/22 7:56 AM) Mode of Delivery (Oxygen) Room air (02/18/22 7:56 AM) Blood pressure sites Arm, left (02/18/22 7:56 AM) Weight Obtained Via Standing scale (02/18/22 7:56 AM) Social History Social History Type Response Smoking Status Former smoker, quit more than 30 days ago entered on: 02/18/22 Sex
--- OUTSIDE RECORDS SUMMARY | 2023-10-25 00:18 | XMS_ITS | Continuity of Care Document ---
Author Organization [facility] Address [address] [place] [address]- Care Team Providers Care Him Specialist Name Role Phone Hermes Joy MD Primary Care Physician En[facility] Date(s): 02/21/21 - [facility]/23/21 [facility] [address] [place] [address]- Allergies, Adverse Reactions, Alerts Substance Reaction Severity [...] 1 Refills, Maintenance, 10/10/20 8:52:00 EDT, Tablet, [facility], Rx resent from 12/21/18., 165, cm, 12/23/19 13:07:00 EDT, Height, 78.7, kg, 12/23/19 13:07:00 EDT, Dry Weight Start Date: 10/10/20 Status: Ordered lovastatin 20 mg oral tablet 1 tablet = 20 mg, By Mouth, Daily, # 90 tablet, 0 Refills, Soft Stop, 01/15/21 8:35:00 EDT, [facility], 165, cm, 11/20/20 9:45:00 EDT, [...] 02/28/21 9:23:00 EDT, Route to Pharmacy Electronically, [facility], Rx resent from 06/23/19., 165, cm, 11/20/20 9:45:00 EDT, Height, 78.7, kg, 12/22... Start Date: 02/28/21 Status: Ordered omeprazole 20 mg oral enteric coated capsule 1 capsule = 20 mg, By Mouth, Daily, # 90 capsule, 1 Refills, Maintenance, 01/25/21 8:22:00 EDT, EC Capsule, [facility], 165, cm, 11/20/20 9:45:00 EDT, [...]
--- OUTSIDE RECORDS SUMMARY | 2023-10-25 00:18 | XMS_ITS | Continuity of Care Document ---
Author Organization [facility] Address [address] [place] [address]- Care Team Providers Care Batch Attendant Name Role Phone Hermes Joy MD Primary Care Physician [phone] Encounter [facility] Date(s): 09/24/23 - 10/01/23 [facility] [address] [place] [address]- [place] Encounter Diagnosis Well adult exam(Discharge Diagnosis) - 09/24/23 Attending Physician: Hermes Joy MD Allergies, Adverse [...] influenza virus vaccine, inactivated 2 06/24/13 Gi ktay influenza virus vaccine, inactivated 04/05/11 Give n [...] 1 Refills, Maintenance, 09/14/23 8:28:00 EDT, Tablet, [facility], [...] 08/26/23 8:27:00 EST, Route to Pharmacy Electronically, [facility], 165, cm, 04/27/23 9:13:00 EDT, [...] Diagnosis Diagnosis Type Effective Dates Health Status Cl inical Service Informant Well adult exam Discharge Diagnosis 09/24/23 Vital Signs Most recent to oldest [Reference Range]: 1 Height 165 cm (09/24/23 8:11 AM) Weight 83.7 kg (09/24/23 8:11 AM) Oxygen Saturation [94-100 %] 95 % (09/24/23 8:11 AM) Pulse Rate [55-90 bpm] 60 bpm (09/24/23 8:11 AM) Body Mass Index [18.5-24.99 kg/m2] 30.74 kg/m2 *>HHI* (09/24/23 8:11 AM) Blood Pressure [90-138/55-84 mm Hg] 127/ 71mm Hg (09/24/23 8:11 AM) Temperature [96.8-100.4 DegF] 96.9 DegF (09/24/23 8:11 AM) Mode of Delivery (Oxygen) Room air (09/24/23 8:11 AM) Blood pressure sites Arm, left (09/24/23 8:11 AM) Temperature Route Temporal (09/24/23 8:11 AM) Weight Obtained Via Standing scale (09/24/23 8:11 AM) Social History Social History Type Response Smoking Status Former smoker, quit more than 30 days ago; Tobacco user in household: No; Other: quit in the 80s; entered on: 12/21/18 Sex Note * Avani Rascon: PERFORM, SIGN, VERIFY Event Display: Patient Education/Instruction Authored Date: [id number] [facility] *BMP Quab Adlt Med Bltn Clinical Summary Name VERONICA MCKNIGHT Age 78 Years 1945 PCP Rufino RITTER, Hermes PCP Visit Date 09/24/2023 08:07:00 Additional Instructions: Scheduled Appointments?? Future Appointments ?No Future Appointments Scheduled Follow-Up Instructions ?? Diagnosis Chronic kidney disease, unspecified; Encounter for general adult medical examination without abnormal findings Medications: Please continue your medications until treatment [...] This Visit Future Orders ?No future orders Future Orders ?CBC w/ Differential? Order Date:09/24/23?- Complete within?Comprehensive Metabolic Panel? Order Date:09/24/23?- Complete within?Lipid Panel? Order Date:09/24/23?- Complete within?Thyroid Panel? Order Date:09/24/23?- Complete within?Hemoglobin A1C (Monitoring)? Order Date:09/24/23?- Complete within?PSA Screen? Order Date:09/24/23?- Complete within? Vital Signs Height 165 cm Weight 83.7 kg BMI 30.74 kg/m2 Blood Pressure 127 mm Hg/71 mm Hg Temperature 96.9 DegF Pulse Rate 60 bpm Respiratory Rate 02 Sat Mode of Delivery 95 %/Room air You can now view a summary of your hospital visit from the comfort of your home through a free online portal called [email or web address]. [email or web address] is a website that allows you to securely view your medical information including discharge summary, medications and follow-up visits. ??You can alsosend a secure electronic message to your doctor???s office to request appointments, renew medications or just ask a question. You can enroll at [email or web address] or register during your next office visit. [...] primary care provider, you may find a [facility] provider by calling [facility] MightyText Link at [phone]. [facility], in keeping with [facility] guidance, no longer requires face masks [...] Team Personnel Name: Zoraida Morris RN Position: [facility] SENIOR CLINICAL DATA COORDINATOR Member Role: Primary Care Nurse Name: Julia Burns RN Position: [facility] Nurse Member Role: Primary Care Nurse Name: Hermes Joy MD Position: [facility] Physician - Primary Care Member Role: PCP Address: Address: [address] [place] [address], [place], [place] [address] Name: Kristine House RN Position: [facility] Outreach Member Role: Primary Care Nurse Care Team Related Persons Name: MAGALI SORENSEN Address: [address] [address] Name: NILAY CLARK
--- OUTSIDE RECORDS SUMMARY | 2023-10-25 00:18 | XMS_ITS | Continuity of Care Document ---
Author Organization [facility] Address [address] [place] [address]- Care Team Providers Care Hog Cutter Name Role Phone Hermes Joy MD Primary Care Physician Encounter [facility] Date(s): 11/20/20 - 12/20/20 [facility] [address] [place] [address]- Attending Physician: Jennifer Castañeda Admitting Physician: AdmtrJennifer Referring Physician: Admtr, ArSeble Allergies, Adverse Reactions, Alerts Substance Reaction Severity [...] 1 Refills, Maintenance, 10/10/20 8:52:00 EDT, Tablet, [facility], Rx resent from 12/21/18., 165, cm, 12/23/19 [...] 12/04/20 8:37:00 EDT, Route to Pharmacy Electronically, [facility], Rx resent from 06/23/19., 165, cm, 11/20/20 9:45:00 EDT, Height, 78.7, kg, 12/22... Start Date: 12/04/20 Status: Ordered omeprazole 20 mg oral enteric coated capsule 1 capsule = 20 mg, By Mouth, Daily, # 90 capsule, 1 Refills, Maintenance, 07/25/20 10:06:00 EST, ECCapsule, [facility], 165, cm, 12/23/19 13:07:00 EDT, [...]
--- OUTSIDE RECORDS SUMMARY | 2023-10-25 00:19 | XMS_ITS | Continuity of Care Document ---
Author Organization [facility] Address [address] [place] [address]- Care Team Providers Care Dust Mop Maker Name Role Phone Hermes Joy MD Primary Care Physician Encounter [facility] Date(s): 06/23/19 - 06/30/19 [email or web address] [address] [place] [address] Encounter Diagnosis Well adult exam(Discharge Diagnosis) - 06/23/19 Attending Physician: Hermes Joy MD Allergies, Adverse [...] EST, Tablet, [facility], Rx resent from 12/21/18., 165, cm, 06/23/19 [...] 06/23/19 8:20:00 EST, Route to Pharmacy Electronically, [facility] [...] 06/23/19 8:21:00 EST, Route to Pharmacy Electronically, [facility] [...] Service Informant Well adult exam Discharge Diagnosis 06/23/19 Vital Signs Most recent to oldest [Reference Range]: 1 Height 165 cm (06/23/19 8:05 AM) Weight 79.6 kg (06/23/19 8:05 AM) Oxygen Saturation [94-100 %] 97 % (06/23/19 8:05 AM) Pulse Rate [55-90 bpm] 61 bpm (06/23/19 8:05 AM) Body Mass Index [18.5-24.99] 29.24 *H* (06/23/19 8:05 AM) Blood Pressure [90-138/55-84 mm Hg] 124/ 70mm Hg (06/23/19 8:05 AM) Liters per Minute 0 L/min (06/23/19 8:05 AM) Mode of Delivery (Oxygen) Room air (06/23/19 8:05 AM) Blood pressure sites Arm, right (06/23/19 8:05 AM) Weight Obtained Via Standing scale (06/23/19 8:05 AM) Social History Social History Type Response Smoking Status Former smoker, quit more than 30 days ago; Tobacco user in household: No; Other: quit in the 80s; entered on: 12/21/18 Sex
--- OUTSIDE RECORDS SUMMARY | 2023-10-25 00:19 | XMS_ITS | Continuity of Care Document ---
Author Organization [facility] Address [address] [place] [address]- Care Team Providers Care Condenser Setter Name Role Phone Hermes Joy MD Primary Care Physician Encounter [facility] Date(s): 12/26/19 - 01/25/20 [email or web address] [address] [place] [address]- [facility] Attending Physician: Jennifer Castañeda Admitting Physician: AdmJennifer crowe Referring Physician: AdmtrJennifer Allergies, Adverse Reactions, Alerts [...] 0 Refills, Maintenance, 12/26/19 7:46:00 EDT, Tablet, [facility], Rx resent from 12/21/18., 165, cm, 06/19/20 13:07:00 EDT, Height, 78.7, kg, 12/23/19 13:07:00 [...] 09/06/19 8:29:00 EST, Route to Pharmacy Electronically, [facility], Rx resent from 06/23/19., 165, cm, 06/23/19 8:05:00 EST, Height Start Date: 09/06/19 Status: Ordered omeprazole 20 mg oral enteric coated capsule 1 capsule = 20 mg, By Mouth, Daily, # 90 capsule, 0 Refills, Maintenance, 01/17/20 16:45:00 EDT, [facility], 165, cm, [...] 11/23/19 12:02:00 EDT, Route to Pharmacy Electronically, [facility], 165, cm, 06/23/19 8:05:00 EST, [...]
--- OUTSIDE RECORDS SUMMARY | 2023-10-25 00:19 | XMS_ITS | Continuity of Care Document ---
Author Organization [facility] Address [address] [place] [address]- Care Team Providers Care Quality Control Director Name Role Phone Hermes Joy MD Primary Care Physician En[facility] Date(s): 11/13/20 - [facility]20/20 [facility] [address] [place] [address] Encounter Diagnosis Biceps tendon rupture(Discharge Diagnosis) - 11/13/20 Attending Physician: Hermes Joy MD Allergies, Adverse [...] 1 Refills, Maintenance, 10/10/20 8:52:00 EDT, Tablet, [facility], Rx resent from 12/21/18., 165, [...] 06/04/20 8:17:00 EST, Route to Pharmacy Electronically, [facility], Rx resent from 06/23/19., 165, cm, 12/23/19 13:07:00 EDT, Height, 78.7, kg, 12/04... Start Date: 06/04/20 Status: Ordered omeprazole 20 mg oral enteric coated capsule 1 capsule = 20 mg, By Mouth, Daily, # 90 capsule, 1 Refills, Maintenance, 07/25/20 10:06:00 EST, ECCapsule, [facility], 165, cm, 12/23/19 13:07:00 EDT, [...] Dates Health Status Cl inical Service Informant Biceps tendon rupture Discharge Diagnosis 11/13/20 Vital Signs Most recent to oldest [Reference Range]: 1 Height 165 cm (11/13/20 2:47 PM) Weight 78.4 kg (11/13/20 2:47 PM) Oxygen Saturation [94-100 %] 97 % (11/13/20 2:47 PM) Pulse Rate [55-90 bpm] 69 bpm (11/13/20 2:47 PM) Body Mass Index [18.5-24.99] 28.8 *H* (11/13/20 2:47 PM) Blood Pressure [90-138/55-84 mm Hg] 136/ 70mm Hg (11/13/20 2:47 PM) Liters per Minute 0 L/min (11/13/20 2:47 PM) Mode of Delivery (Oxygen) Room air (11/13/20 2:47 PM) Blood pressure sites Arm, left (11/13/20 2:47 PM) Weight Obtained Via Standing scale (11/13/20 2:47 PM) Social History Social History Type Response Smoking Status Former smoker, quit more than 30 days ago entered on: 11/13/20 Sex
--- OUTSIDE RECORDS SUMMARY | 2023-10-25 00:19 | XMS_ITS | Continuity of Care Document ---
Author Organization [facility] Address [address] [place] [address]- Care Team Providers Care Accounting File Clerk Name Role Phone Hermes Joy MD Primary Care Physician [phone] Encounter [facility] Date(s): 04/08/21 - 05/08/21 [facility] [address] [place] [address]- Allergies, Adverse Reactions, Alerts Substance Reaction Severity [...] 0 Refills, Maintenance, 04/09/21 12:35:00 EDT, Tablet, [facility], Partial fill upon patient request if the [...] EDT, Route to Pharmacy Electronically, [facility], Rx resent from 06/23/19., 165, cm, 11/20/20 9:45:00 EDT, Height, 78.7, kg, 12/22... Start Date: 02/28/21 Status: Ordered omeprazole 20 mg oral enteric coated capsule 1 capsule = 20 mg, By Mouth, Daily, # 90 capsule, 1 Refills, Maintenance, 01/25/21 8:22:00 EDT, EC Capsule, [facility], 165, cm, 11/20/20 9:45:00 EDT, [...]
--- OUTSIDE RECORDS SUMMARY | 2023-10-25 00:19 | XMS_ITS | Continuity of Care Document ---
Author Organization [facility] Address [address] [place] [address]- Care Team Providers Care Firewall Administrator Name Role Phone Hermes Joy MD Primary Care Physician Encounter [facility] Date(s): 06/16/22 - 07/16/22 [facility] [address] [place] [address]- Attending Physician: Jennifer Castañeda Admitting Physician: AdmtrJennifer Referring Physician: AdmtrJennifer Allergies, Adverse Reactions, Alerts [...] 1 Refills, Maintenance, 06/17/22 16:36:00 EST, Tablet, [facility], Partial fill upon patient request [...] 08/22/21 9:11:00 EST, Route to Pharmacy Electronically, [facility], 165, cm, 06/13/21 11:19:00 EST, Height, 78.7, kg, 12/23/19 13:07:00 EDT, Dry Weight Start Date: 08/22/21 Status: Ordered omeprazole 20 mg oral enteric coated capsule 1 capsule = 20 mg, By Mouth, Daily, # 90 capsule, 3 Refills, Maintenance, 08/22/21 9:11:00 EST, EC Capsule, [facility], 165, cm, 06/13/21 11:19:00 EST, [...] Team Personnel Name: Zoraida Morris RN Position: [facility] DISH PERSON No Tools Member Role: Primary Care Nurse Name: Hermes Joy MD Position: [facility] Primary Care Physician Member Role: PCP Address: Address: [address] [place] [address], [place] [address]- Care Team Related Persons Name: MAGALI SORENSEN Address: home [address] [place] [id number] Name: NILAY CLARK
--- OUTSIDE RECORDS SUMMARY | 2023-10-25 00:19 | XMS_ITS | Continuity of Care Document ---
Author Organization [facility] Address [address] [place] [address]- Care Team Providers Care Manager Hris Name Role Phone Hermes Joy MD Primary Care Physician [phone] Encounter [facility] Date(s): 06/18/22 - 07/18/22 [facility] [address] [place] [address]- [place] Allergies, Adverse Reactions, Alerts Substance Reaction [...] 08/22/21 9:11:00 EST, Route to Pharmacy Electronically, [facility], 165, cm, 06/13/21 11:19:00 EST, Height, 78.7, kg, 12/23/19 13:07:00 EDT, Dry Weight Start Date: 08/22/21 Status: Ordered omeprazole 20 mg oral enteric coated capsule 1 capsule = 20 mg, By Mouth, Daily, # 90 capsule, 3 Refills, Maintenance, 08/22/21 9:11:00 EST, EC Capsule, [facility], 165, cm, 06/13/21 11:19:00 EST, [...] 02/17/22 8:37:00 EDT, Route to Pharmacy Electronically, [facility], 165, cm, 01/28/22 13:42:00 EDT, [...] Team Personnel Name: Zoraida Morris RN Position: [facility] SPECIALIST No Tools Member Role: Primary Care Nurse Name: Hermes Joy MD Position: [facility] Primary Care Physician Member Role: PCP Address: Address: [address] [place] [id number] Care Team Related Persons Name: MAGALI SORENSEN Address: home [address] [place] [id number] Name: NILAY CLARK
--- OUTSIDE RECORDS SUMMARY | 2023-10-25 00:19 | XMS_ITS | Continuity of Care Document ---
Author Organization [facility] Address [address] [place] [address]- Care Team Providers Care Compensation Specialist Name Role Phone Hermes Joy MD Primary Care Physician Encounter [facility] Date(s): 10/17/21 - [facility] [address] [place] [address]- Allergies, Adverse Reactions, Alerts Substance Reaction Severity [...] 1 Refills, Maintenance, 09/04/21 11:07:00 EST, Tablet, [id number], Partial fill upon patient request if the prescription is for a schedule II opioid drug., 165, cm, 06/13/21 11:19:00 EST, Hei... Start Date: 09/04/21 Status: Ordered lovastatin 20 mg oral tablet 1 tablet = 20 mg, By Mouth, Daily, # 90 tablet, 3 Refills, Soft Stop, 08/22/21 9:12:00 EST, [id number], 165, cm, 06/13/21 11:19:00 EST, [...] 08/22/21 9:11:00 EST, Route to Pharmacy Electronically, [id number], 165, cm, 06/13/21 11:19:00 EST, Height, 78.7, kg, 12/23/19 13:07:00 EDT, Dry Weight Start Date: 08/22/21 Status: Ordered omeprazole 20 mg oral enteric coated capsule 1 capsule = 20 mg, By Mouth, Daily, # 90 capsule, 3 Refills, Maintenance, 08/22/21 9:11:00 EST, EC Capsule, [facility] [id number], 165, cm, 06/13/21 11:19:00 EST, Height, 78.7, kg, 12/23/19 13:07:00 EDT, Dry Weight Start Date: 08/22/21 Status: Ordered One-A-Day Men Pro Edge 1 tablet, By Mouth, Daily, 0 Refills, Maintenance, 08/07/16 9:45:51 Start Date: 08/07/16 Status: Ordered Paxlovid 150 mg-100 mg oral tablet 1 tablet, By Mouth, 2 times a day, # 10 tablet, 0 Refills, Maintenance, 10/18/21 16:13:00 EDT, [facility] #[id number], Partial fill upon patient request [...]
[2023-10-25 01:07] VITALS: BP 186/92; PULSE 68; RESP 16; TEMP 36.8; O2SAT 96
== END 2023-10-25 01:09 | disposition home or self-care (01) ==
PROVIDERS: Emergency Provider Emergency Medicine; PCP Internal Medicine
DX: S43.005A Unspecified dislocation of left shoulder joint, initial encounter (principal); S69.92XA Unspecified injury of left wrist, hand and finger(s), initial encounter; R07.81 Pleurodynia; R00.1 Bradycardia, unspecified; M25.512 Pain in left shoulder; M25.532 Pain in left wrist; W01.10XA Fall on same level from slipping, tripping and stumbling with subsequent striking against unspecified object, initial encounter; Y93.9 Activity, unspecified; Y92.480 Sidewalk as the place of occurrence of the external cause; Y99.8 Other external cause status
CPT/HCPCS: 23655; 71101; 73030; 73070; 73090; 73110; 73130; 93005; 96374; 96375; 99284; J2270

== ENCOUNTER → 2023-10-24 22:56 | Outpatient (BNV) | payer MEDICARE, SELFPAY | PROVIDERS: Emergency Provider Emergency Medicine; PCP Internal Medicine; Visit Provider Internal Medicine | DX: R00.1 Bradycardia, unspecified (principal); R94.31 Abnormal electrocardiogram [ECG] [EKG] | CPT/HCPCS: 93010 ==